=== PATIENT | female | born 1990 | race African-American/Black ===

== ENCOUNTER 2018-04-21 12:28 | Outpatient (REF) | payer OTHER, SELFPAY | END 2018-04-21 12:48 | LOC: LBN 12:28 | PROVIDERS: PCP Obstetrics & Gynecology Gynecology; Visit Provider Obstetrics & Gynecology Gynecology | DX: O42.919 Preterm premature rupture of membranes, unspecified as to length of time between rupture and onset of labor, unspecified trimester (principal) | CPT/HCPCS: 87081 ==

== ENCOUNTER 2018-05-05 23:47 | Inpatient (IN) | payer OTHER, SELFPAY ==
[2018-05-06] VITALS (8 sets, daily range): BP systolic 116–126; BP diastolic 59–98; PULSE 91–123; RESP 12–28; TEMP 36.3–36.5; O2SAT 98–100
[2018-05-06 00:23] LABS: HGB 13.4 g/dL (12.0-15.5); Mean Corp. HGB Concentration 34.4 g/dL (32.0-36.0); Mean Corpuscular Hemoglobin 30.6 pg (27.0-33.0); Mean Platelet Volume 10.8 fL (8.0-11.0); Platelet Count 258 x1000/uL (130-400); RBC 4.38 m/cumm (4.00-5.20); RBC Distribution Width 13.2 % (11.7-14.6); White Blood Cell Count 12.81 k/cumm (4.4-10.8)
[2018-05-06] MEDS: Lactated Ringers 1,000 ML 125 ML IV ×2 (00:45→07:55)
--- NOTE | 2018-05-06 06:09 | W.PM.HP.N ---
Date of service: 05/06/18 Time of Service: 01:00 Assessment and Plan (1) premature rupture of membranes: Current visit: No Status: Acute The patient was admitted for PPROM and PTL. She has been counseled extensively through the that viability for the fetus lies greater than 23 weeks and that no resuscitation would be possible at this point. We will augment labor with pitocin and monitor carefully for signs of chorioamnionitis. CBC was drawn. History of Present Illness Chief Complaint: PPROM. 19 weeks gestation Narrative: 27 year old presents with complaint of contractions and the sensation that she can feel the baby in her vagina. She is known to have SROM in the early second trimester and has been followed closely and completed MFM consultation last week. She denies any fevers or chills. No significant vaginal bleeding. She is generally healthy with no chronic medical problems. On initial evaluation a speculum examination was performed confirming presenting parts in the vagina. She is admitted for labor. Review of Systems Review of Systems All systems reviewed & are unremarkable except as noted in HPI and below Genitourinary Comments: A sterile speculum examination was performed confirming lower extremities through the external os and into the vagina. PFSH Medical History Enlarged thyroid (Chronic) premature rupture of membranes (Acute) Social History household members: significant other number of children: 0 current occupational status: employed current occupation: [employer] Recent Travel: No (Has not been out of the country recently. Is a [facility], [place], [facility].) sexually active: Yes Smoking and Tabacco status: Never alcohol intake: former substance use type: does not use Meds Home Medications Medication Instructions Recorded Confirmed Type acetaminophen 500 mg tablet 500 mg PO Q6H PRN 04/21/18 05/05/18 History vits 75-iron 28 mg-folic pkg PO each 04/21/18 05/05/18 History acid 800 mcg-omega3 440 mg oral pack Allergies Allergy/AdvReac Type Severity Reaction Status Date / Time No Known Allergies Allergy Verified 05/06/18 00:37 Results Labs : 05/06/18 00:10 Laboratory Results - last 24 hr 05/06/18 05/06/18 00:10 00:10 WBC 12.81 H RBC 4.38 Hgb 13.4 Hct 39.0 MCV 89.0 MCH 30.6 MCHC 34.4 RDW 13.2 Plt Count 258 MPV 10.8 Patient ABO/Rh AB Positive Antibody Screen Negative
--- NOTE | 2018-05-06 07:30 | PLAC_PTH ---
PATIENT: Denisha Franklin LOC: OBS U#:[id number] AGE/SX: 27/F ROOM: OBS.306 RE05/05/[address]: Ed Beach MD : 1990 BED: A DIS: 05/07/2018 SPEC #: [id number] RECD: 05/06/18 12:51 STATUS: ANGELES REQ #: [id number] JULES: 05/06/18 07:[address]: Ed Beach DEPT: Surgical Specimen RECD BY: Kia Kent ENTERED: 05/06/18 12:52 SP TYPE: PLAC OTHR DR: Keiry Del Valle Tissues: 1 - PLACENTA (NOT 3RD TRIMESTER) Procedures: GROSS AND MICRO LEVEL 4 Comments: [id number]
[2018-05-06] MEDS: fentaNYL 100 MCG/2 ML VIAL IVP (08:34)
[2018-05-06 08:46] LABS: HCT 30.5 % (36.0-46.0); HGB 10.5 g/dL (12.0-15.5); Mean Corp. HGB Concentration 34.4 g/dL (32.0-36.0); Mean Corpuscular Hemoglobin 31.2 pg (27.0-33.0); Mean Corpuscular Volume 90.5 fL (80-95); Mean Platelet Volume 10.8 fL (8.0-11.0); Platelet Count 198 x1000/uL (130-400); RBC 3.37 m/cumm (4.00-5.20); White Blood Cell Count 23.58 k/cumm (4.4-10.8)
[2018-05-06 09:02] LABS: INR 0.9 (0.9-1.1); PTT Activated 22.7 sec (21.0-31.4); Prothrombin Time 9.4 sec (9.3-11.0)
--- NOTE | 2018-05-06 09:51 | W.PM.PROGNOT ---
Date of Service Date of service: 05/06/18 Time of Service: 06:30 Subjective Interval history since last seen: At approximately 4am I was called to evaluate the patient for increasing abdominal pain. On my arrival she did deliver the fetus stillborn. This was a male fetus with no obvious anomalies. Bleeding was minimal at that time. Greater than two hours had pass and the third stage did not complete. I did attempt an extraction of the placenta at the bedside but this could not be accomplished. She did develop moderate bleeding at this point and the decision was made to proceed with suction D&C. Risks of surgery were reviewed with the patient. All questions were answered and consent was obtained. See operative note for details. Objective Objective Clinical Data: Abnormal lab results 05/06/18 05/06/18 Range/Units 00:10 08:38 WBC 12.81 H 23.58 H D (4.4-10.8) k/cumm RBC 3.37 L (4.00-5.20) m/cumm Hgb 10.5 L D (12.0-15.5) g/dL Hct 30.5 L D (36.0-46.0) % Intake & Output 05/05/18 05/05/18 05/06/18 11:59 23:59 11:59 Intake Total 3000 / 3000 Output Total 800 / 800 Balance 2200 / 2200 Weight 159 lb Intake: IV 3000 / 3000 Output: Estimated Blood Loss 800 / 800 Laboratory Results WBC 23.58 k/cumm (4.4-10.8) H D 05/06/18 08:38 RBC 3.37 m/cumm (4.00-5.20) L 05/06/18 08:38 Hgb 10.5 g/dL (12.0-15.5) L D 05/06/18 08:38 Hct 30.5 % (36.0-46.0) L D 05/06/18 08:38 MCV 90.5 fL (80-95) 05/06/18 08:38 MCH 31.2 pg (27.0-33.0) 05/06/18 08:38 MCHC 34.4 g/dL (32.0-36.0) 05/06/18 08:38 RDW 13.0 % (11.7-14.6) 02/28/19 08:38 Plt Count 198 x1000/uL (130-400) 05/06/18 08:38 MPV 10.8 fL (8.0-11.0) 05/06/18 08:38 PT 9.4 sec (9.3-11.0) 05/06/18 08:38 INR 0.9 (0.9-1.1) 05/06/18 08:38 APTT 22.7 sec (21.0-31.4) 05/06/18 08:38 Patient ABO/Rh AB Positive 05/06/18 00:10 Antibody Screen Negative 05/06/18 00:10
--- NOTE | 2018-05-06 09:58 | W.PM.OP ---
Date of service: 05/06/18 Time of Service: 09:58 Operative Note DATE OF PROCEDURE: 05/06/18 PRE-OP DIAGNOSIS: Retained placenta. PPROM. POST-OP DIAGNOSIS: same PROCEDURE: Suction D&C SURGEON: Ed Beach ANESTHESIA: ANA ROSA ESTIMATED BLOOD LOSS: 800 PATHOLOGY: other (Placenta) COMPLICATIONS: Other ( hemorrhage due to uterine atony) Patient was transported to: PACU Patient's condition: stable Findings: Uterine atony. Retained placenta Procedure Description: The patient was taken to the operating room and after adequate general anesthesia the patient was placed in lithotomy position. The patient was prepped and draped in the usual sterile manner. A weighted speculum was placed in the vagina with good visualization of the cervix. The cervix was grasped with a ring forcep and explored also with a ring forcep. The placenta was removed in fragments. A suction curettage was performed with a 14f curved suction curette yielding copious additional tissue. A sharp curettage was performed and additional tissue was retrieved. A second pass with the suction curette ensured complete evacuation of uterine contents. The uterus was significantly atonic at this point and bleeding was quite brisk. IV pitocin had been running prior the procedure and two dose of hemeabate was administered. An attempt at Bakri balloon was made but during this attempt uterine tone was regained and the Bakri could not be placed. Nonetheless bleeding had essentially stopped negating the need for the Bakri ballon. The procedure was concluded at this point. Instruments were correct at the conclusion of the procedure and the patient was transferred to PACU in stable condition.
[2018-05-06 11:04] LABS: Fibrinogen (Stat) (Littleton) 439 mg/dL (208-434)
[2018-05-06 12:28] LABS: HGB 10.3 g/dL (12.0-15.5); Mean Corp. HGB Concentration 34.3 g/dL (32.0-36.0); Mean Corpuscular Hemoglobin 31.3 pg (27.0-33.0); Mean Corpuscular Volume 91.2 fL (80-95); Mean Platelet Volume 10.9 fL (8.0-11.0); Platelet Count 209 x1000/uL (130-400); RBC 3.29 m/cumm (4.00-5.20); White Blood Cell Count 23.63 k/cumm (4.4-10.8)
[2018-05-06] MEDS: CLINDAMYCIN 900 MG/50 ML BAG 50 MG IVPB (16:24)
[2018-05-07] MEDS: CLINDAMYCIN 900 MG/50 ML BAG 50 MG IVPB ×2 (00:14→08:53)
[2018-05-07] MEDS: Normal Saline 100 ML (00:40)
[2018-05-07] MEDS: Lactated Ringers 1,000 ML 125 ML IV (04:42)
[2018-05-07 07:55] LABS: HCT 25.2 % (36.0-46.0); HGB 8.5 g/dL (12.0-15.5); Mean Corp. HGB Concentration 33.7 g/dL (32.0-36.0); Mean Corpuscular Hemoglobin 30.9 pg (27.0-33.0); Mean Corpuscular Volume 91.6 fL (80-95); Mean Platelet Volume 10.8 fL (8.0-11.0); Platelet Count 194 x1000/uL (130-400); RBC 2.75 m/cumm (4.00-5.20); RBC Distribution Width 13.2 % (11.7-14.6); White Blood Cell Count 13.29 k/cumm (4.4-10.8)
--- NOTE | 2018-05-07 08:10 | W.PM.PROGNOT ---
Date of Service Date of service: 05/07/18 Time of Service: 08:10 Assessment and Plan (1) Spontaneous in second trimester: Start date: 05/05/18 Current visit: Yes Status: Acute (2) History of D&C: Start date: 05/05/18 Current visit: Yes Status: Acute Subjective Patient reports: tolerating liquids well, voiding w/o difficulty and bowel movement (yesterday) Interval history since last seen: Focal tenderness LLQ. adnexal region. Otherwise comfortable. Exam Narrative Exam Narrative: Postop day #1 after a D&C for retained placenta after a spontaneous of a nonviable fetus at approximately 18 weeks. Her postop course has been uncomplicated she has been tolerating a regular diet passing gas had a BM yesterday she feels that she can go home today. Const General: comfortable Nutritional Appearance: average body habitus Orientation: alert, awake and oriented x3 Resp Effort & Inspection: normal respiratory effort Auscultation: clear to auscultation bilaterally Cardio Palpation: normal PMI Rate: regular rate Rhythm: regular rhythm Heart Sounds: S1 normal and S2 normal GI Inspection: normal to inspection Palpation: soft and tender (Left lower quadrant and adnexal region) Percussion: normal to percussion Auscultation: normal bowel sounds General: deferred Back/Spine/Pelvis Back: no CVA tenderness Skin General skin exam: no rashes or lesions noted Objective Objective Clinical Data: Abnormal lab results 05/06/18 05/06/18 05/06/18 Range/Units 08:38 08:38 12:15 WBC 23.58 H D 23.63 H (4.4-10.8) k/cumm RBC 3.37 L 3.29 L (4.00-5.20) m/cumm Hgb 10.5 L D 10.3 L (12.0-15.5) g/dL Hct 30.5 L D 30.0 L (36.0-46.0) % Fibrinogen 439 H (208-434) mg/dL 05/07/18 Range/Units 07:30 WBC 13.29 H D (4.4-10.8) k/cumm RBC 2.75 L (4.00-5.20) m/cumm Hgb 8.5 L (12.0-15.5) g/dL Hct 25.2 L (36.0-46.0) % Fibrinogen (208-434) mg/dL Vital Signs Temperature 97.7 F 05/06/18 09:20 Pulse 91 H 05/06/18 09:20 Respiratory Rate 28 H 05/06/18 09:20 Blood Pressure 120/78 05/06/18 09:20 Pulse Oximetry 100 05/06/18 09:20 Respiratory End-tidal CO2 27 05/06/18 09:20 Oxygen Delivery Method Room Air 05/06/18 09:20 Oxygen Flow Rate 2 05/06/18 09:05 Intake & Output 05/06/18 05/06/18 05/07/18 11:59 23:59 11:59 Intake Total 3000 / 3151.5 151.5 / 3151.5 140 / 140 Output Total 1500 / 1500 Balance 1500 / 1651.5 151.5 / 1651.5 140 / 140 Weight 159 lb Intake: IV 3000 / 3151.5 151.5 / 3151.5 140 / 140 Output: Urine 700 / 700 Estimated Blood Loss 800 / 800 Other: Urine Color Yellow Urine Appearance Clear Comment STARIGHT CATHED IN PACU Emesis Description None Laboratory Results WBC 13.29 k/cumm (4.4-10.8) H D 05/07/18 07:30 RBC 2.75 m/cumm (4.00-5.20) L 05/07/18 07:30 Hgb 8.5 g/dL (12.0-15.5) L 05/07/18 07:30 Hct 25.2 % (36.0-46.0) L 05/07/18 07:30 MCV 91.6 fL (80-95) 05/07/18 07:30 MCH 30.9 pg (27.0-33.0) 05/07/18 07:30 MCHC 33.7 g/dL (32.0-36.0) 05/07/18 07:30 RDW 13.2 % (11.7-14.6) 05/07/18 07:30 Plt Count 194 x1000/uL (130-400) 05/07/18 07:30 MPV 10.8 fL (8.0-11.0) 05/07/18 07:30 PT 9.4 sec (9.3-11.0) 05/06/18 08:38 INR 0.9 (0.9-1.1) 05/06/18 08:38 APTT 22.7 sec (21.0-31.4) 05/06/18 08:38 Fibrinogen 439 mg/dL (208-434) H 05/06/18 08:38 Patient ABO/Rh AB Positive 05/06/18 00:10 Antibody Screen Negative 05/06/18 00:10
--- NOTE | 2018-05-07 09:09 | W.PM.DS.N ---
Date of service: 05/07/18 Time of Service: 09:09 DS: Diagnosis Discharge Diagnosis (1) Spontaneous in second trimester: Status: Acute (2) History of D&C: Status: Acute Discharge Plan Disposition Patient Disposition: HOME Condition: Fair Discharge Details Reason For Visit: 20 WEEKS LABOR Admit Date/Time: 05/05/18 23:47 Admit Provider: Ed Beach Attending Provider: Ed Beach Primary Care Provider: Keiry Del Valle [facility] Hospital Course: Patient is a 27-year-old female with a history of premature rupture membranes at 17+ weeks EGA on 04/19/2018 she went on to continue the until 05/05/2018 when she experienced contractions and presented to the hospital with parts in the vagina. She underwent a oxytocin augmentation of labor and and delivered a nonviable fetus with out issue. The placenta did not deliver spontaneously and she required a D&C performed by Dr. Ed Beahc in the OR on the morning of 05/06/2018. Estimated blood loss 800 cc. Postop course was uncomplicated she remained afebrile And was discharged home after 24 hours of IV in clindamycin and gentamicin. Home Meds and New Rx's Prescriptions: No Action acetaminophen [Tylenol Extra Strength] 500 mg tablet 500 mg PO Q6H PRNRF: 0 Daily 28-800-440 mg-mcg-mg combo pack PO RF: 0 Discharge Instructions Additional Instructions: You will continue to have bleeding for approximately 2 weeks. You may use ibuprofen 600 mg every 6 hours for pelvic discomfort. Contact [facility] at [phone] if you are develop chills, shakes, uterine tenderness not controlled with ibuprofen or a temperature of over 100.5 ?F. Make a follow-up with Dr. Beach 2 weeks. Nothing in the vagina: No intercourse or tampons until your postop visit. 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 I recommend waiting approximately a week before return to work. Continue to take a multivitamin with iron along with your antibiotics. Discharge medications: Doxycycline 100 mg twice daily for 7 days and Metronidazole 500 mg twice a day for 7 days. I will send those prescriptions to your pharmacy. Activity:: Activity as Tolerated Equipment/Supplies:: No Equipment Needed Diet:: As Tolerated Discharge Orders Discharge Orders: Discharge Order (Routine); Ordered 05/07/18 Ordered By: Keiry Del Valle Exam Const General: comfortable and no acute distress Resp Effort & Inspection: normal respiratory effort Auscultation: clear to auscultation bilaterally Cardio Palpation: normal PMI Rate: regular rate Heart Sounds: S1 normal and S2 normal GI Inspection: normal to inspection Palpation: tender (Continues with left lower quadrant pain mild.) Abdomen image: 1. General: deferred Skin General skin exam: no rashes or lesions noted Psych Appearance: grossly normal Mental Status: mental status grossly normal DS: Data Vitals/I&O Vitals and I&O: Vital Signs Temperature 97.7 F 05/06/18 09:20 Pulse 91 H 05/06/18 09:20 Respiratory Rate 28 H 05/06/18 09:20 Blood Pressure 120/78 05/06/18 09:20 Pulse Oximetry 100 05/06/18 09:20 Respiratory End-tidal CO2 27 05/06/18 09:20 Oxygen Delivery Method Room Air 05/06/18 09:20 Oxygen Flow Rate 2 05/06/18 09:05 Intake & Output 05/06/18 05/06/18 05/07/18 11:59 23:59 11:59 Intake Total 3000 / 3151.5 151.5 / 3151.5 140 / 140 Output Total 1500 / 1500 Balance 1500 / 1651.5 151.5 / 1651.5 140 / 140 Weight 159 lb Intake: IV 3000 / 3151.5 151.5 / 3151.5 140 / 140 Output: Urine 700 / 700 Estimated Blood Loss 800 / 800 Other: Urine Color Yellow Urine Appearance Clear Comment STARIGHT CATHED IN PACU Emesis Description None Labs on day of discharge: Labs from last 24 hours 05/07/18 05/06/18 05/06/18 07:30 12:15 09:55 WBC 13.29 H D 23.63 H Cancelled RBC 2.75 L 3.29 L Cancelled Hgb 8.5 L 10.3 L Cancelled Hct 25.2 L 30.0 L Cancelled MCV 91.6 91.2 Cancelled MCH 30.9 31.3 Cancelled MCHC 33.7 34.3 Cancelled RDW 13.2 13.0 Cancelled Plt Count 194 209 Cancelled MPV 10.8 10.9 Cancelled Fibrinogen 05/06/18 08:38 WBC RBC Hgb Hct MCV MCH MCHC RDW Plt Count MPV Fibrinogen 439 H PFSH Medical History Spontaneous in second trimester (Acute) Enlarged thyroid (Chronic) premature rupture of membranes (Resolved) Surgical History History of D&C (Acute) Social History household members: significant other number of children: 0 current occupational status: employed current occupation: [employer] Recent Travel: No (Has not been out of the country recently. Is a [facility], [place], [facility] [facility] [employer] sexually active: Yes Smoking and Tabacco status: Never alcohol intake: former substance use type: does not use
== END 2018-05-07 10:30 | disposition home or self-care (01) | DRG 807 ==
PROVIDERS: Nurse Anesthetist, Certified Registered; Admitting Provider Obstetrics & Gynecology; PCP Obstetrics & Gynecology Gynecology; Visit Provider Obstetrics & Gynecology
PROC: (CPT 59812; principal; 2018-05-06 07:30)
DX: O03.1 Delayed or excessive hemorrhage following incomplete spontaneous abortion (principal); Z37.1 Single stillbirth; Z3A.19 19 weeks gestation of pregnancy
CPT/HCPCS: 59812; 36415; 85027; 85384; 86850; 86900; 86901; 88305; 99223; 99231; 99233; 85610; 85730; J1100; J1580; J2250; J2405; J3010; J3490

== ENCOUNTER 2018-10-26 10:41 | Outpatient (CLI) | payer OTHER, SELFPAY ==
--- NOTE | 2018-10-26 10:45 | DI.US_ITS ---
SYMPTOM/DIAGNOSIS: EVALUATE PELVIC MASS, FIBROID VS OVARIAN MASS OB ULTRASOUND: 10/26 OB ultrasound was performed according to first trimester protocol. There is an apparent fibroid measuring roughly 5.3 x 4.2 x 7.5 cm in diameter posteriorly. No ovarian mass seen. There is a single viable intrauterine gestation with crown/rump length measurements consistent with gestational age of 9 weeks 2 days and EDC 05/29/19. cardiac activity observed at a rate of 175 BPM. Ovaries measure 32 x 13 x 14 mm for the right ovary and 27 x 19 x 19 mm for the left ovary. CONCLUSION: Viable quan intrauterine gestation, 9 weeks 2 days. Uterine fibroid noted as described above. Many abnormalities cannot be diagnosed. A normal exam does not exclude a congenital anomaly. HISTORY: pelvic mass on dating U/S [facility] - uterine vs ovarian origin? Date of exam: 10/26/18 LMP: 08/22/18 EDC by LMP: Previous study: 9 +2 wks Range: 8 +2 to 10 +2 EDC by prior us: Findings: Prior surgery/: none BIOMETRY: PELVIC MEASUREMENTS: CRL: 25 mm 9 +2 wks Uterus: 12.1 X 9.2 X 9.6 cm Yolk sac: mm wks Gest sac: mm wks Rt Ovary: 3.2 X 1.3 X 1.4 cm BPD: mm wks HC: mm wks Lt Ovary: 2.7 X 1.9 X 1.9 cm AC: mm wks FL: mm wks Comments: Composite Age (US): 9 +2 wks EDC by US: 05/29/19 Heart Rate: 175 BPM Amniotic Fluid: Normal Movement noted: XX Yes Comments:
--- NOTE | 2018-10-26 10:45 | DI.US_ITS ---
SYMPTOM/DIAGNOSIS: ENLARGED THYROID E04.9 THYROID ULTRASOUND 10/26 Thyroid ultrasound was performed according to the usual protocol. The patient reportedly has a palpable abnormality. This corresponds to a lymph node which is unremarkable in appearance. Right thyroid lobe measures 61 x 17 x 30 mm in diameter Left thyroid lobe measures 60 x 18 x 30 mm in diameter. No focal thyroid mass identified but the parenchyma is heterogeneous throughout with a vaguely nodular appearance. CONCLUSION: Findings consistent with goiter. No intrathyroidal mass. Lymph node noted corresponding to the palpable abnormality in the cervical region on the right.
[2018-10-26 12:06] LABS: Abs Immature Grans 0.01 k/cumm (0.0-0.09); Absolute Basophil Count 0.02 k/cumm (0.0-0.2); Absolute Eosinophil Count 0.09 k/cumm (0.0-0.7); Absolute Lymphocyte Count 1.43 k/cumm (1.2-3.4); Absolute Monocyte Count 0.59 k/cumm (0.11-0.7); Absolute Neutrophil Count 6.65 k/cumm (1.2-6.7); Basophils % 0.2; HCT 38.2 % (36.0-46.0); HGB 13.2 g/dL (12.0-15.5); Immature Grans % 0.1; Lymphocytes % 16.3; Mean Corp. HGB Concentration 34.6 g/dL (32.0-36.0); Mean Corpuscular Hemoglobin 30.4 pg (27.0-33.0); Mean Platelet Volume 10.7 fL (8.0-11.0); Monocytes % 6.7; Neutrophils % 75.7; Platelet Count 311 x1000/uL (130-400); RBC 4.34 m/cumm (4.00-5.20); RBC Distribution Width 12.1 % (11.7-14.6); White Blood Cell Count 8.79 k/cumm (4.4-10.8)
[2018-10-26 13:14] LABS: FREE T4 1.09 ng/dL (0.76-1.46); TSH 1.62 uIU/mL (0.36-3.74)
[2018-10-26 22:14] LABS: T3, Total 166 ng/dl (97-169)
[2018-10-27 10:05] LABS: Hepatitis B Surface Ag Negative (NEGAT)
[2018-10-27 10:56] LABS: HIV-1/2 Ag & Ab Screen Negative (NEGAT)
[2018-10-27 10:58] LABS: Rubella IgG Ab (UVM) Positive; Varicella IgG Antibody Positive
[2018-10-27 11:00] LABS: Hepatitis C Ab w Rflx HCV PCR Negative (NEGAT)
[2018-10-27 12:50] LABS: Syphilis Serology (RPR) Negative (Negative)
== END 2018-10-26 11:01 ==
PROVIDERS: PCP Obstetrics & Gynecology Gynecology; Visit Provider Obstetrics & Gynecology
DX: E04.8 Other specified nontoxic goiter (principal); Z34.91 Encounter for supervision of normal pregnancy, unspecified, first trimester; D25.9 Leiomyoma of uterus, unspecified; Z11.4 Encounter for screening for human immunodeficiency virus [HIV]; Z11.59 Encounter for screening for other viral diseases; Z01.84 Encounter for antibody response examination; R59.0 Localized enlarged lymph nodes
CPT/HCPCS: 36415; 80055; 86787; 86803; 86850; 86900; 86901; 87340; 87389; 76536; 76801; 84439; 84443; 84480; 86592; 86762

== ENCOUNTER 2018-11-10 10:10 | Outpatient (CLI) | payer OTHER, SELFPAY ==
[2018-11-10 10:51] LABS: Abs Immature Grans 0.01 k/cumm (0.0-0.09); Absolute Basophil Count 0.02 k/cumm (0.0-0.2); Absolute Eosinophil Count 0.06 k/cumm (0.0-0.7); Absolute Lymphocyte Count 1.28 k/cumm (1.2-3.4); Absolute Monocyte Count 0.53 k/cumm (0.11-0.7); Absolute Neutrophil Count 6.91 k/cumm (1.2-6.7); Basophils % 0.2; Eosinophils % 0.7; HCT 37.6 % (36.0-46.0); HGB 13.3 g/dL (12.0-15.5); Immature Grans % 0.1; Lymphocytes % 14.5; Mean Corp. HGB Concentration 35.4 g/dL (32.0-36.0); Mean Corpuscular Hemoglobin 30.8 pg (27.0-33.0); Mean Platelet Volume 10.5 fL (8.0-11.0); Neutrophils % 78.5; Platelet Count 298 x1000/uL (130-400); RBC 4.32 m/cumm (4.00-5.20); RBC Distribution Width 12.1 % (11.7-14.6); White Blood Cell Count 8.81 k/cumm (4.4-10.8)
[2018-11-11 10:22] LABS: Hepatitis B Surface Ag Negative (NEGAT)
[2018-11-11 10:24] LABS: HIV-1/2 Ag & Ab Screen Negative (NEGAT)
[2018-11-11 10:28] LABS: Hepatitis C Ab w Rflx HCV PCR Negative (NEGAT)
[2018-11-11 10:33] LABS: Syphilis Serology (RPR) Negative (Negative)
[2018-11-11 10:36] LABS: Rubella IgG Ab (UVM) Positive; Varicella IgG Antibody Positive
[2018-11-12 16:20] LABS: Syphilis Total Ab w/Reflex Nonreactive (Nonreactive)
== END 2018-11-10 10:30 ==
PROVIDERS: PCP Obstetrics & Gynecology Gynecology; Visit Provider Advanced Practice Midwife
DX: Z34.91 Encounter for supervision of normal pregnancy, unspecified, first trimester (principal); Z11.4 Encounter for screening for human immunodeficiency virus [HIV]; Z11.59 Encounter for screening for other viral diseases; Z01.84 Encounter for antibody response examination
CPT/HCPCS: 36415; 80055; 86787; 86803; 86850; 86900; 86901; 87340; 87389; 87491; 87591; 86592; 86762; 86780

== ENCOUNTER 2018-11-10 17:31 | Outpatient (REF) | payer OTHER, SELFPAY ==
[2018-11-10 14:31] LABS: *AMPHETAMINES SCREEN URINE Negative (Negative); *BARBITURATES SCREEN URINE Negative (Negative); *BENZODIAZEPINES SCREEN URINE Negative (Negative); Cannabinoids THC Negative (Negative); Cocaine Screen,Urine Negative (Negative); METHADONE URINE SCREEN Negative (Negative); OPIATES URINE SCREEN Negative (Negative)
[2018-11-10 14:35] LABS: Tricyclic Antidepressants Negative (Negative)
[2018-11-11 13:08] LABS: Chlamydia Result Negative; GC Result Negative; Specimen Description CERVIX
[2018-11-11 13:08] LABS: Chlamydia Result Negative; GC Result Negative; Specimen Description Urine
[2018-11-17 11:22] LABS: Buprenorphine Negative; Norbuprenorphine Negative
== END 2018-11-10 17:51 ==
LOC: LBN 17:31
PROVIDERS: PCP Obstetrics & Gynecology Gynecology; Visit Provider Advanced Practice Midwife
DX: Z34.90 Encounter for supervision of normal pregnancy, unspecified, unspecified trimester (principal)
CPT/HCPCS: 80307; 87491; 87591; 87086; 87480; 87510; 87660

== ENCOUNTER 2018-11-24 06:02 | Day surgery (SDC) | payer OTHER, SELFPAY ==
[2018-11-24] VITALS (8 sets, daily range): BP systolic 106–120; BP diastolic 48–80; PULSE 75–86; RESP 16–25; TEMP 36.6–37.2; O2SAT 99–100
[2018-11-24 07:03] LABS: HCT 37.3 % (36.0-46.0); HGB 13.1 g/dL (12.0-15.5); Mean Corp. HGB Concentration 35.1 g/dL (32.0-36.0); Mean Corpuscular Hemoglobin 30.8 pg (27.0-33.0); Mean Corpuscular Volume 87.8 fL (80-95); Mean Platelet Volume 10.6 fL (8.0-11.0); Platelet Count 291 x1000/uL (130-400); RBC 4.25 m/cumm (4.00-5.20); RBC Distribution Width 12.3 % (11.7-14.6); White Blood Cell Count 8.09 k/cumm (4.4-10.8)
[2018-11-24] MEDS: Lactated Ringers 1,000 ML 125 ML IV (07:03)
[2018-11-24] MEDS: Silver Nitrate Stick 1 EACH (08:00)
[2018-11-24] MEDS: Acetaminophen 500 MG TAB 1000 MG PO (08:51)
[2018-11-24] MEDS: Indomethacin 25 MG CAP 50 MG PO (09:14)
--- NOTE | 2018-11-24 19:32 | W.PM.OP ---
Date of service: 11/24/18 Time of Service: 19:32 Operative Note Operative Note DATE OF PROCEDURE: 11/24/18 PRE-OP DIAGNOSIS: Cervical insufficiency POST-OP DIAGNOSIS: same PROCEDURE: [place] SURGEON: Ed Beach ANESTHESIA: spinal ESTIMATED BLOOD LOSS: 20 PATHOLOGY: none sent COMPLICATIONS: None Patient was transported to: PACU Patient's condition: stable Procedure Description: The patient was taken to the operating room and after adequate spinal anesthesia was obtained the patient was placed in lithotomy position. The patient was prepped and draped in usual sterile manner. A weighted speculum was placed in the vagina with good visualization of the cervix. The cervix was grasped with an Allis forcep. The cervical vaginal junction was identified. A pursestring suture starting at the 12 o'clock position with 5 mm Mersilene tape and a free needle was passed circumferentially around the cervix. This was tied with 7 knots at the 12 o'clock position. Excellent hemostasis was noted. The procedure was tolerated well. The cervix was closed at the conclusion of the procedure. the patient was transferred to PACU stable condition. Sponge, lap and needle counts were correct at the conclusion of the procedure.
== END 2018-11-24 10:07 | disposition home or self-care (01) ==
PROVIDERS: PCP Nurse Practitioner Adult Health; Visit Provider Obstetrics & Gynecology
PROC: 0UVC7ZZ Restriction of Cervix, Via Natural or Artificial Opening (ICD-10-PCS; CPT 57700; principal; 2018-11-24 07:30)
DX: O34.31 Maternal care for cervical incompetence, first trimester (principal); Z3A.13 13 weeks gestation of pregnancy
CPT/HCPCS: 59320; 85027; 86850; 86900; 86901; 86920; P9016

== ENCOUNTER 2018-12-17 14:47 | Outpatient (CLI) | payer OTHER, SELFPAY ==
[2018-12-17 16:51] LABS: FREE T4 0.98 ng/dL (0.76-1.46)
== END 2018-12-17 15:07 ==
PROVIDERS: PCP Nurse Practitioner Adult Health
DX: R76.8 Other specified abnormal immunological findings in serum (principal)
CPT/HCPCS: 36415; 84439

== ENCOUNTER 2019-01-07 10:21 | Outpatient (CLI) | payer OTHER, SELFPAY ==
--- NOTE | 2019-01-07 12:46 | DI.US_ITS ---
EXAM: US OB CERVICAL LENGTH CLINICAL HISTORY: S/P cerclage, CERVICAL INSUFFICIENCY DURING TECHNIQUE: Ultrasound performed using standard protocol. COMPARISON: US OB 1st trimester from 10/26/2018 FINDINGS: The fetus was in variable position during the exam. The placenta is anterior. The cervical length i s 4.4 cm to 4.6 cm. The cervical os is closed.
== END 2019-01-07 10:41 ==
PROVIDERS: PCP Nurse Practitioner Adult Health; Visit Provider Obstetrics & Gynecology
DX: O34.32 Maternal care for cervical incompetence, second trimester (principal)
CPT/HCPCS: 76815

== ENCOUNTER 2019-01-24 01:42 | Outpatient (CLI) | payer OTHER, SELFPAY ==
--- NOTE | 2019-01-24 09:53 | DI.US_ITS ---
EXAM: US OB 2-3 TRIMESTER CLINICAL HISTORY: , Z34.90, Cervical insufficiency in 2nd trimester, O34.32 TECHNIQUE: Ultrasound performed using standard protocol. COMPARISON: US OB 1st trimester from 10/26/2018 US OB CERVICAL LENGTH from 01/07/2019 FINDINGS: A posterior lower uterine segment fibroid is again noted measuring 6.6 cm in greatest dimension. The fetus was in breech position during the exam. The placenta is anterior. The biometric measurements correspond to 22 weeks 1 day which is consistent with predicted age. The amniotic fluid amount appea rs visually normal. No abnormalities are seen. The cervical length is measured at 4.5. The c ervical os appears closed. IMPRESSION: Cervical length 4.5 cm. Posterior lower uterine segment fibroid. Appropriate interval growth.
== END 2019-01-24 02:02 ==
PROVIDERS: PCP Nurse Practitioner Adult Health; Visit Provider Obstetrics & Gynecology
DX: O34.32 Maternal care for cervical incompetence, second trimester (principal); D25.9 Leiomyoma of uterus, unspecified
CPT/HCPCS: 76805

== ENCOUNTER 2019-03-03 11:31 | Outpatient (CLI) | payer OTHER, SELFPAY ==
[2019-03-03 13:00] LABS: Glucose,1 Hr (Glucola) 132 mg/dL (80-140)
[2019-03-03 13:02] LABS: Abs Immature Grans 0.03 k/cumm (0.0-0.09); Absolute Basophil Count 0.02 k/cumm (0.0-0.2); Absolute Eosinophil Count 0.13 k/cumm (0.0-0.7); Absolute Lymphocyte Count 1.23 k/cumm (1.2-3.4); Absolute Neutrophil Count 5.93 k/cumm (1.2-6.7); Basophils % 0.3; Eosinophils % 1.6; HCT 36.7 % (36.0-46.0); HGB 12.5 g/dL (12.0-15.5); Immature Grans % 0.4; Lymphocytes % 15.5; Mean Corp. HGB Concentration 34.1 g/dL (32.0-36.0); Mean Corpuscular Hemoglobin 31.4 pg (27.0-33.0); Mean Corpuscular Volume 92.2 fL (80-95); Mean Platelet Volume 10.4 fL (8.0-11.0); Monocytes % 7.6; Neutrophils % 74.6; Platelet Count 249 x1000/uL (130-400); RBC 3.98 m/cumm (4.00-5.20); RBC Distribution Width 12.8 % (11.7-14.6); White Blood Cell Count 7.94 k/cumm (4.4-10.8)
[2019-03-03 13:43] LABS: TSH (W/Ref FT4) 1.28 uIU/mL (0.36-3.74)
== END 2019-03-03 11:51 ==
PROVIDERS: PCP Nurse Practitioner Adult Health; Visit Provider Obstetrics & Gynecology
DX: O99.282 Endocrine, nutritional and metabolic diseases complicating pregnancy, second trimester; E06.3 Autoimmune thyroiditis
CPT/HCPCS: 36415; 82950; 84443; 85025

== ENCOUNTER 2019-03-28 00:51 | Outpatient (CLI) | payer OTHER, SELFPAY ==
--- NOTE | 2019-03-28 10:07 | DI.US_ITS ---
EXAM: US OB LATASHA WEIGHT CLINICAL HISTORY: Size less than dates O34.32 CERVICAL INCOMPETENCE TECHNIQUE: Ultrasound performed using standard protocol. COMPARISON: US OB 2-3 TRIMESTER from 01/24/2019 FINDINGS: Ob ultrasound was performed utilizing 3rd trimester protocol. biometry is consistent with gest ational age of 33 weeks 5 days and EDC of 05/11/2019. Estimated weight is 2155 grams which is at the 95th percentile for predicted gestational age. Placenta is anterior with no placenta previa. Fetus is in cephalic presentation. Amniotic fluid index is 21 which is slightly increased above the normal range consistent with mild po lyhydramnios. Estimated cervical length is 3.2 cm. cardiac activity noted at a rate of 158 BPM IMPRESSION:
== END 2019-03-28 01:11 ==
PROVIDERS: PCP Nurse Practitioner Adult Health; Visit Provider Obstetrics & Gynecology
DX: O34.33 Maternal care for cervical incompetence, third trimester (principal); O26.843 Uterine size-date discrepancy, third trimester; O40.3XX0 Polyhydramnios, third trimester, not applicable or unspecified; Z3A.33 33 weeks gestation of pregnancy
CPT/HCPCS: 76816

== ENCOUNTER 2019-04-26 02:05 | Outpatient (CLI) | payer OTHER, SELFPAY ==
--- NOTE | 2019-04-26 10:45 | DI.US_ITS ---
EXAM: US OB LATASHA AND WEIGHT CLINICAL HISTORY: LGA. REVALUATE GROWTH O36.60X0 EXCESSIVE GROWTH TECHNIQUE: Ultrasound performed using standard protocol. COMPARISON: US OB LATASHA WEIGHT from 03/28/2019 FINDINGS: There is a single living intrauterine gestation. The fetus is in the cephalic presentation. heart rate is 155 BPM. Estimated weight is 3024 grams. This is the 86th percentile. Amniotic fluid index is 20.9 cm. Visually, the amniotic fluid appears within normal limits. The placenta is anterior. IMPRESSION: Single living intrauterine gestation. The estimated sonographic age is 36 weeks 5 days.
== END 2019-04-26 02:25 ==
PROVIDERS: PCP Nurse Practitioner Adult Health; Visit Provider Obstetrics & Gynecology
DX: O36.60X3 Maternal care for excessive fetal growth, unspecified trimester, fetus 3 (principal)
CPT/HCPCS: 76816

== ENCOUNTER 2019-05-06 11:55 | Outpatient (REF) | payer OTHER, SELFPAY | END 2019-05-06 12:15 | LOC: LBN 11:55 | PROVIDERS: PCP Nurse Practitioner Adult Health; Visit Provider Obstetrics & Gynecology | DX: Z34.93 Encounter for supervision of normal pregnancy, unspecified, third trimester (principal); Z36.85 Encounter for antenatal screening for Streptococcus B | CPT/HCPCS: 87081 ==

== ENCOUNTER 2019-05-20 00:38 | Observation (INO) | payer OTHER, SELFPAY ==
[2019-05-20] MEDS: Lactated Ringers 1,000 ML 125 ML IV (01:35)
[2019-05-20] MEDS: fentaNYL 100 MCG/2 ML VIAL 50 MCG IVP (01:35)
[2019-05-20 01:52] LABS: HCT 37.7 % (36.0-46.0); HGB 13.1 g/dL (12.0-15.5); Mean Corp. HGB Concentration 34.7 g/dL (32.0-36.0); Mean Corpuscular Hemoglobin 31.4 pg (27.0-33.0); Mean Corpuscular Volume 90.4 fL (80-95); Mean Platelet Volume 11.3 fL (8.0-11.0); Platelet Count 178 x1000/uL (130-400); RBC 4.17 m/cumm (4.00-5.20); RBC Distribution Width 12.3 % (11.7-14.6); White Blood Cell Count 13.18 k/cumm (4.4-10.8)
[2019-05-20 02:04] LABS: ALT 15 U/L (14-59); AST 18 U/L (15-37); Alkaline Phosphatase 153 U/L (46-116); Anion Gap 13.8 mmol/L (3-11); BUN 11 mg/dL (7-18); Bilirubin, Total 0.5 mg/dL (0.2-1.0); CO2 21.2 mmol/L (21.0-32.0); CREATININE 0.88 mg/dL (0.55-1.02); Calcium 9.1 mg/dL (8.5-10.1); Chloride 104 mmol/L (98-107); Glucose 89 mg/dL (74-106); Potassium 3.6 mmol/L (3.5-5.1); Sodium 139 mmol/L (136-145); Total Protein 7.4 g/dL (6.4-8.2)
[2019-05-20 02:59] LABS: Bilirubin Negative (Negative); Blood Trace-intact (Negative); Clarity Clear (Clear); Glucose Negative (Negative); Ketones 40 mg/dL (Negative); Leukocyte Esterase Negative (Negative); Nitrite Negative (Negative); Urobilinogen 0.2 EU/dL (Up TO 0.2); pH 6.5 (5-8)
[2019-05-20 03:12] LABS: Bacteria Rare HPF (Negative); C & S Indicated? No; Casts Negative LPF (Negative); Crystals Negative HPF (Negative); Epithelial Cells Moderate HPF (Negative); Mucus Negative (Negative); RBC 0-2 HPF (0-2); WBC 0-2 HPF (0-5)
--- NOTE | 2019-05-20 07:55 | W.PM.DS.N ---
Date of service: 05/20/19 Time of Service: 07:55 DS: Diagnosis Discharge Diagnosis (1) Uterine fibroid in antepartum period: Status: Acute (2) Abdominal pain affecting : Status: Acute Discharge Plan Disposition Patient Disposition: HOME Condition: Fair Discharge Details Reason For Visit: IUP AT 38W EGA. L FLANK PAIN Admit Date/Time: 05/20/19 00:38 Admit Provider: Keiry Del Valle Attending Provider: Keiry Del Valle Primary Care Provider: Tatiana Rao [facility] Course Hospital Course: Patient was admitted for unremitting left-sided flank pain at 38w 5d EGA. External tocometer showed contractions every 3 minutes and cervix dilated to 3 cm with 90% effacement -1 station. It appeared that she was experiencing early labor and she was admitted and given 50 mcg of fentanyl IV. That 1 dose of fentanyl completely relieved her pain. She slept for several hours and cervical exam was essentially unchanged approximately 5 hours after admission. surveillance was reassuring. The patient requested discharge to home. [facility]. A prescription for Percocet was given to the patient 5/325 1 tablet every 4 hours as needed for pain #5 dispensed Home Meds and New Rx's Prescriptions: No Action acetaminophen [Tylenol Extra Strength] 500 mg tablet 500 mg PO Q6H PRNRF: 0 PrePlus 27 mg iron- 1 mg tablet 1 tab PO DAILY Qty: 90 RF: 8 [place] (PF) 275 mg/1.1 mL auto-injector 275 mg SC ONCE Qty: 1.1 RF: 0 oxycodone-acetaminophen 5-325 mg tablet 1 tab PO Q4H MDD 6 PRN (Reason: pain) Qty: 5 RF: 0 fluconazole [Diflucan] 150 mg tablet 150 mg PO ONCE Qty: 1 RF: 0 Discharge Instructions Additional Instructions: If your pain recurs take dose of Percocet. If that is not effective at relieving her discomfort call the hospital and ask for the on-call provider. Percocet has Tylenol in it so take no more than 3 g of Tylenol over the course of 24 hours. If you have vaginal bleeding, contractions or rupture amniotic sac notify the on-call provider and come to the hospital. You will have a follow-up appointment for you prior to discharge. Activity:: Activity as Tolerated Equipment/Supplies:: No Equipment Needed Diet:: As Tolerated Discharge Orders Discharge Orders: Discharge Order (Routine); Ordered 05/20/19 Ordered By: Keiry Del Valle DS: Summary Status at Discharge Functional status at discharge: independent ambulation Overall status at discharge: patient is back to baseline Mental Status: mental status grossly normal (Pain resolved.) Speech and Movement: speech and movement normal Mood: congruent mood Affect: normal affect Exam Const General: comfortable and no acute distress Resp Effort & Inspection: normal respiratory effort External Female Exam: normal external appearance Manual OB Exam: dilated 3, effaced fully (90%) and station -1 Back/Spine/Pelvis Back: no CVA tenderness Pelvis: no pain with anterior-posterior compression Extrem General: normal to inspection, full ROM and capillary refill normal Psych Appearance: grossly normal Mental Status: mental status grossly normal (Pain resolved.) Speech and Movement: speech and movement normal Mood: congruent mood Affect: normal affect DS: Data Vitals/I&O Vitals and I&O: Vital Signs Pain Level 0 05/20/19 02:35 Data Completed and Pending Labs on day of discharge: Labs from last 24 hours 05/20/19 05/20/19 05/20/19 02:35 01:35 01:35 WBC 13.18 H RBC 4.17 Hgb 13.1 Hct 37.7 MCV 90.4 MCH 31.4 MCHC 34.7 RDW 12.3 Plt Count 178 MPV 11.3 H Sodium Potassium Chloride Carbon Dioxide Anion Gap BUN Creatinine Estimated GFR/1.73 m2 Glucose Calcium Total Bilirubin AST ALT Alkaline Phosphatase Total Protein Albumin Urine Color Yellow Urine Clarity Clear Urine pH 6.5 Ur Specific [place] 1.020 Urine Protein 30 H Urine Ketones 40 H Urine Blood Trace-intact H Urine Nitrite Negative Urine Bilirubin Negative Urine Urobilinogen 0.2 Ur Leukocyte Esterase Negative Urine RBC 0-2 Urine WBC 0-2 Ur Epithelial Cells Moderate Urine Crystals Negative Urine Bacteria Rare Urine Casts Negative Urine Mucus Negative Ur Culture Indicated? No Urine Glucose Negative Patient ABO/Rh AB Positive Antibody Screen Negative 05/20/19 01:35 WBC RBC Hgb Hct MCV MCH MCHC RDW Plt Count MPV Sodium 139 Potassium 3.6 Chloride 104 Carbon Dioxide 21.2 Anion Gap 13.8 H BUN 11 Creatinine 0.88 Estimated GFR/1.73 m2 >= 60.00 Glucose 89 Calcium 9.1 Total Bilirubin 0.5 AST 18 ALT 15 Alkaline Phosphatase 153 H Total Protein 7.4 Albumin 3.0 L Urine Color Urine Clarity Urine pH Ur Specific [place] Urine Protein Urine Ketones Urine Blood Urine Nitrite Urine Bilirubin Urine Urobilinogen Ur Leukocyte Esterase Urine RBC Urine WBC Ur Epithelial Cells Urine Crystals Urine Bacteria Urine Casts Urine Mucus Ur Culture Indicated? Urine Glucose Patient ABO/Rh Antibody Screen PFSH Family History (Updated 11/10/18 @ 09:20 by Cassie Quiñones CNM) Mother Depression Social History (Updated 04/21/18 @ 16:51 by Keiry Del Valle MD) Smoking/Tobacco Use Status: Never Alcohol Intake: never Drug use: Never Substance use type: does not use Household members: significant other Number of Children: 0 current occupation: [employer] Sexually active: Yes Do you feel safe at home: Yes Do you feel safe in your relationship?: Yes History History 2 Para Hx # Term Pregnancies 0 Multiple births Hx # Pregnancies Ectopic pregnancies AB induced Hx Number of Living Children AB spontaneous Past Pregnancies Del. Date GA/Weeks # Outcome Route Wgt Sex Labor Lgth Anesthesia Location Prov Complic 04/14/18 19 No Unsuccessful vaginal Delivery Date: 04/14/18 SAB at 19w1d retained placenta to OR By Cassie Butts
== END 2019-05-20 08:30 | disposition home or self-care (01) ==
PROVIDERS: Admitting Provider Obstetrics & Gynecology Gynecology; PCP Nurse Practitioner Adult Health; Visit Provider Obstetrics & Gynecology Gynecology
DX: O34.13 Maternal care for benign tumor of corpus uteri, third trimester (principal); D25.9 Leiomyoma of uterus, unspecified; O26.893 Other specified pregnancy related conditions, third trimester; R10.9 Unspecified abdominal pain; Z3A.38 38 weeks gestation of pregnancy
CPT/HCPCS: 80053; 85027; 86850; 86900; 86901; 96360; 96361; NC; 81003; 81015; G0378; J3010

== ENCOUNTER 2019-05-22 14:26 | Inpatient (IN) | payer OTHER, SELFPAY ==
[2019-05-22 16:54] LABS: ROM Plus Positive
[2019-05-22 18:08] LABS: HCT 41.9 % (36.0-46.0); HGB 14.4 g/dL (12.0-15.5); Mean Corp. HGB Concentration 34.4 g/dL (32.0-36.0); Mean Corpuscular Hemoglobin 31.2 pg (27.0-33.0); Mean Corpuscular Volume 90.7 fL (80-95); Platelet Count 210 x1000/uL (130-400); RBC 4.62 m/cumm (4.00-5.20); RBC Distribution Width 12.5 % (11.7-14.6); White Blood Cell Count 8.75 k/cumm (4.4-10.8)
[2019-05-22 18:50] LABS: ALT 16 U/L (14-59); AST 23 U/L (15-37); Albumin 3.4 g/dL (3.4-5.0); Alkaline Phosphatase 183 U/L (46-116); Anion Gap 14.5 mmol/L (3-11); BUN 13 mg/dL (7-18); Bilirubin, Direct 0.19 mg/dL (0.00-0.20); Bilirubin, Total 0.7 mg/dL (0.2-1.0); CO2 22.5 mmol/L (21.0-32.0); CREATININE 0.94 mg/dL (0.55-1.02); Calcium 9.6 mg/dL (8.5-10.1); Chloride 103 mmol/L (98-107); Glucose 87 mg/dL (74-106); Potassium 4.1 mmol/L (3.5-5.1); Sodium 140 mmol/L (136-145); Total Protein 7.7 g/dL (6.4-8.2)
[2019-05-22] MEDS: Lactated Ringers 1,000 ML 999 ML IV (22:15)
[2019-05-22] MEDS: Lactated Ringers 250 ML 500 ML IV (22:30)
[2019-05-22] MEDS: fentaNYL 100 MCG/2 ML VIAL IVP (23:00)
[2019-05-23] MEDS: FentaNYL/ROPIvacaine 2 mcg/ml and 0.1% 200 ML CADD Cassette EP
[2019-05-23] MEDS: Lactated Ringers 1,000 ML 125 ML IV ×2 (01:00→06:10)
[2019-05-23] MEDS: Hamamelis Leaf/Glycerin 100 EACH BOX PR (12:06)
[2019-05-23] MEDS: Acetaminophen 325 MG TAB 650 MG PO ×2 (12:07→22:11)
[2019-05-23] MEDS: Docusate Sodium 100 MG CAP PO (12:07)
[2019-05-23] MEDS: Ibuprofen 600 MG TAB PO ×2 (12:07→22:14)
[2019-05-23] MEDS: Normal Saline Flush 10 ML SYR IVP (12:22)
[2019-05-24] MEDS: Acetaminophen 325 MG TAB 650 MG PO ×2 (06:22→19:20)
[2019-05-24] MEDS: Ibuprofen 600 MG TAB PO ×2 (06:23→19:20)
--- NOTE | 2019-05-24 16:44 | PDOC.ANES ---
Anesthesia Note Pt reports heaviness in right leg. Pt is SP atraumatic epidural placement at 0030 ThursdayMay 22. She delivered Thursday morning. Epidural was DCed. Pt reported that her right leg felt weak after taking a shower yesterday afternoon. Motor assessment (resisted dorsifexion and plantar flexion) demonstrates equal strength bilaterally. Today, Denisha has been up walking in the halls with no noticeable gait differences, foot drop, or unsteadiness. She states everybody keeps asking me about this leg thing but it doesnt bother me at all. I hardly notice it. Ms. Franklin will be discharged tomorrow per the current plan. The patient will be given instructions on what to look for and when to call anesthesia for questions or come to the ED.
[2019-05-24] MEDS: Docusate Sodium 100 MG CAP PO (20:12)
--- NOTE | 2019-05-25 07:59 | W.PM.PROGNOT ---
Date of Service Date of service: 05/25/19 Time of Service: 07:59 Assessment and Plan Assessment and plan (1) (normal spontaneous vaginal delivery): Status: Acute Assessment and plan: PPD 2 s/p at term. Ok for discharge home today. Subjective Subjective Interval history since last seen: Doing well. Minimal lochia. Minimal perineal pain. Objective Objective Clinical Data: Vital Signs Pain Level 4 05/24/19 19:20 Laboratory Results WBC 8.75 k/cumm (4.4-10.8) 05/22/19 17:58 RBC 4.62 m/cumm (4.00-5.20) 05/22/19 17:58 Hgb 14.4 g/dL (12.0-15.5) 05/22/19 17:58 Hct 41.9 % (36.0-46.0) 05/22/19 17:58 MCV 90.7 fL (80-95) 05/22/19 17:58 MCH 31.2 pg (27.0-33.0) 05/22/19 17:58 MCHC 34.4 g/dL (32.0-36.0) 05/22/19 17:58 RDW 12.5 % (11.7-14.6) 05/22/19 17:58 Plt Count 210 x1000/uL (130-400) 05/22/19 17:58 MPV 11.0 fL (8.0-11.0) 05/22/19 17:58 Sodium 140 mmol/L (136-145) 05/22/19 17:58 Potassium 4.1 mmol/L (3.5-5.1) 05/22/19 17:58 Chloride 103 mmol/L (98-107) 05/22/19 17:58 Carbon Dioxide 22.5 mmol/L (21.0-32.0) 05/22/19 17:58 Anion Gap 14.5 mmol/L (3-11) H 05/22/19 17:58 BUN 13 mg/dL (7-18) 05/22/19 17:58 Creatinine 0.94 mg/dL (0.55-1.02) 05/22/19 17:58 Estimated GFR/1.73 m2 >= 60.00 (mL/min/1.73m2) 05/22/19 17:58 Glucose 87 mg/dL (74-106) 05/22/19 17:58 Calcium 9.6 mg/dL (8.5-10.1) 05/22/19 17:58 Total Bilirubin 0.7 mg/dL (0.2-1.0) 05/22/19 17:58 Conjugated Bilirubin 0.19 mg/dL (0.00-0.20) 05/22/19 17:58 AST 23 U/L (15-37) 05/22/19 17:58 ALT 16 U/L (14-59) 05/22/19 17:58 Alkaline Phosphatase 183 U/L (46-116) H 05/22/19 17:58 Total Protein 7.7 g/dL (6.4-8.2) 05/22/19 17:58 Albumin 3.4 g/dL (3.4-5.0) 05/22/19 17:58 Membranes Rupture Positive 05/22/19 16:30 Patient ABO/Rh AB Positive 05/22/19 17:58 Antibody Screen Negative 05/22/19 17:58
== END 2019-05-25 15:00 | disposition home or self-care (01) | DRG 807 ==
PROVIDERS: Obstetrics & Gynecology; Admitting Provider Obstetrics & Gynecology; PCP Nurse Practitioner Adult Health; Visit Provider Obstetrics & Gynecology
DX: O76 Abnormality in fetal heart rate and rhythm complicating labor and delivery (principal); Z37.0 Single live birth; O70.0 First degree perineal laceration during delivery; Z3A.38 38 weeks gestation of pregnancy
CPT/HCPCS: 80053; 80076; 84112; 85027; 86850; 86900; 86901; 99233; J3010; J3490

== ENCOUNTER 2019-07-05 14:23 | Outpatient (REF) | payer OTHER, SELFPAY ==
[2019-07-05 15:49] LABS: FREE T4 0.99 ng/dL (0.76-1.46); TSH 2.52 uIU/mL (0.36-3.74)
== END 2019-07-05 14:43 ==
LOC: LBN 14:23
PROVIDERS: PCP Nurse Practitioner Adult Health; Visit Provider Obstetrics & Gynecology
DX: E06.3 Autoimmune thyroiditis (principal)
CPT/HCPCS: 84439; 84443

== ENCOUNTER 2020-08-10 02:33 | Outpatient (CLI) | payer OTHER, SELFPAY ==
[2020-08-10 10:59] LABS: Kit/Specimen SENT
[2020-08-10 11:09] LABS: Abs Immature Grans 0.02 10^3/uL (0.0-0.06); Absolute Basophil Count 0.03 10^3/uL (0.0-0.2); Absolute Eosinophil Count 0.16 10^3/uL (0.0-0.7); Absolute Lymphocyte Count 1.73 10^3/uL (1.2-3.4); Absolute Monocyte Count 0.52 10^3/uL (0.1-0.8); Absolute Neutrophil Count 6.03 10^3/uL (1.2-6.7); Basophils % 0.4; Eosinophils % 1.9; HCT 39.1 % (36.0-46.0); HGB 13.7 g/dL (11.2-15.7); Immature Grans % 0.2; Lymphocytes % 20.4; MCH 30.6 pg (27.0-33.0); MCV 87.5 fL (80-95); MPV 10.3 fL (8.0-11.0); Monocytes % 6.1; Nucleated RBC 0 %; Platelet Count 275 10^3/uL (130-400); RBC 4.47 10^6/uL (3.93-5.22); RDW-SD 38.7 fL; WBC 8.49 10^3/uL (4.4-10.8)
[2020-08-10 11:55] LABS: TSH (W/Ref FT4) 2.69 uIU/mL (0.36-3.74)
[2020-08-13 10:22] LABS: HIV-1/2 Ag & Ab Screen Negative (Negative)
[2020-08-13 10:42] LABS: Hepatitis B Surface Ag Negative (Negative)
[2020-08-13 10:54] LABS: Hepatitis C Ab w Rflx HCV PCR Negative (Negative)
[2020-08-13 11:03] LABS: Syphilis Serology (RPR) Negative (Negative)
[2020-08-13 11:07] LABS: Varicella IgG Antibody Positive (See Note)
[2020-08-13 11:11] LABS: Rubella IgG Ab (UVM) Positive (See Note)
[2020-08-15 12:03] LABS: Result Summary NEGATIVE; Specimen WB Whole Blood
== END 2020-08-10 02:34 | disposition home or self-care (01) ==
PROVIDERS: Obstetrics & Gynecology; PCP Nurse Practitioner Adult Health; Visit Provider Obstetrics & Gynecology Gynecology
DX: Z34.91 Encounter for supervision of normal pregnancy, unspecified, first trimester (principal); Z11.4 Encounter for screening for human immunodeficiency virus [HIV]; Z11.59 Encounter for screening for other viral diseases; Z01.84 Encounter for antibody response examination
CPT/HCPCS: 86787; 86803; 86850; 86900; 86901; 87340; 87389; 81220; 84443; 85025; 86592; 86762

== ENCOUNTER 2020-09-03 03:04 | Outpatient (CLI) | payer OTHER, SELFPAY ==
[2020-09-03 10:47] LABS: HCT 37.4 % (36.0-46.0); MCH 30.5 pg (27.0-33.0); MCHC 34.8 % (32.0-36.0); MCV 87.8 fL (80-95); MPV 10.1 fL (8.0-11.0); Platelet Count 281 10^3/uL (130-400); RBC 4.26 10^6/uL (3.93-5.22); RDW 12.9 % (11.7-14.6); RDW-SD 41.5 fL; WBC 6.14 10^3/uL (4.4-10.8)
[2020-09-03 11:39] LABS: Source Nasal/Nares
[2020-09-03 14:11] LABS: COVID-19 PCR Negative (Negative)
== END 2020-09-03 03:05 | disposition home or self-care (01) ==
LOC: LBO 03:05
PROVIDERS: PCP Nurse Practitioner Adult Health; Visit Provider Obstetrics & Gynecology
DX: O34.32 Maternal care for cervical incompetence, second trimester (principal); Z3A.15 15 weeks gestation of pregnancy; Z20.822 Contact with and (suspected) exposure to COVID-19; Z01.818 Encounter for other preprocedural examination; Z01.812 Encounter for preprocedural laboratory examination
CPT/HCPCS: 36415; 85027; 86850; 86900; 86901; 87635

== ENCOUNTER 2020-09-05 06:02 | Day surgery (SDC) | payer OTHER, SELFPAY ==
[2020-09-05 06:18] VITALS: BP 110/73; PULSE 82; RESP 16; TEMP 36.6; O2SAT 100
[2020-09-05] MEDS: Lactated Ringers 1,000 ML 125 ML IV (06:44)
--- NOTE | 2020-09-05 07:08 | ANES.PREOP_ITS ---
General Info Date of Service Date Performed: 09/05/20 Height: 5 ft 6 in Weight: 70.42 kg Body Mass Index (BMI): 25.0 Surgical Procedure: Operation Date: 09/05/20 07:40 Proposed Procedures Side Surgeon p Cervical Cerclage Whitney May DO Meds Allergies and Home Medications Allergies Allergy/AdvReac Type Severity Reaction Status Date / Time No Known Allergies Allergy Verified 09/05/20 06:29 Home Medication Medication Instructions Recorded acetaminophen 500 mg tablet 500 mg PO Q6H PRN 04/21/18 vitamin with calcium 1 tab PO DAILY #90 tab 01/23/20 no.72-iron 27 mg-folic acid 1 mg tablet Current Visit Medications: Current Medications Generic Name Dose Route Start Last Admin Trade Name Freq PRN Reason Stop Dose Admin Ringer's Solution 1,000 mls @ 125 mls/hr 09/05/20 06:00 09/05/20 06:44 IV 10/04/20 23:59 125 mls/hr INFUSION PAULA Administration IV Miscellaneous Supplies 1 each 09/05/20 06:00 Iv Access IV 10/04/20 23:59 DIRECTED PAULA Sodium Chloride 0 ml 09/05/20 06:00 Normal Saline Flush 10 Ml Syr IV 10/04/20 23:59 PRN PRN Sodium Chloride 0 ml 09/05/20 06:00 Normal Saline 10 Ml Vial IJ 10/04/20 23:59 DIRECTED PRN Sterile Water 0 ml 09/05/20 06:00 Water,Injection,Sterile 10 Ml Vial IJ 10/04/20 23:59 DIRECTED PRN PFSH Active Problems Active Problems: Problem Status Onset Code HRP (high risk ) O09.90 Early stage of Z34.90 (normal spontaneous vaginal delivery) O80 Uterine fibroid in antepartum period O34.10, D25.9 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 History of Tricia's thyroiditis. HRP (high risk ) premature rupture of membranes 04/2018. 17W0D SRM clear fluid. Confirmed by speculum exam and OB ultrasound. Patient declined initial recommendation to the termination. Spontaneous in second trimester Spontaneous rupture of membranes at 17 W 2D went on to have spontaneous passage of a nonviable fetus at approximately 18 weeks. Retained placenta and required D&C Surgical History Surgical History History of D&C 05/06/2018 for retained placenta after spontaneous at 18 weeks estimated gestational age. Tobacco Smoking/Tobacco Use Status: Never Alcohol Alcohol Intake: never Substance Use Substance use: Never Substance use type: does not use Prental History History 2 Para 1 Hx # Term Pregnancies 1 Multiple births Hx # Pregnancies Ectopic pregnancies AB induced Hx Number of Living Children AB spontaneous 1 Past Pregnancies Del. Date GA/Weeks # Outcome Route Wgt Sex Labor Lgth Anesthes ia Location Prov Complic 04/14/18 19 No Unsuccessful vaginal 05/23/19 No Successful vaginal 3685.438 g Female [place] Delivery Date: 04/14/18 SAB at 19w1d retained placenta to OR By Cassie Butts Delivery Date: 05/23/19 No notes to display Vital Signs and Lab Results Vital Signs Most Recent Vital Signs in EMR: Most Recent Vital Signs Temp Pulse Resp BP Pulse Ox 36.6 C 82 16 110/73 100 09/05/20 06:18 09/05/20 06:18 09/05/20 06:18 09/05/20 06:18 09/05/20 06:18 Lab Results Blood Type / Crossmatch: Patient ABO/Rh AB Positive 09/03/20 10:09/03/20 Antibody Screen NEGATIVE 09/03/20 10:33 09/03/20 Complete Blood Count: White Blood Count 6.14 10^3/uL (4.4-10.8) 09/03/20 10:09/03/20 Red Blood Count 4.26 10^6/uL (3.93-5.22) 09/03/20 10:33 09/03/20 Hemoglobin 13.0 g/dL (11.2-15.7) 09/03/20 10:09/03/20 Hematocrit 37.4 % (36.0-46.0) 09/03/20 10:33 09/03/20 Platelet Count 281 10^3/uL (130-400) 09/03/20 10:33 09/03/20 Complete Metabolic Panel: No Data to Display Liver Function Panel: No Data to Display Coagulation Panel: No Data to Display Cardiac Panel: No Data to Display Arterial Blood Gas: No Data to Display Venous Blood Gas: No Data to Display Pancreas Panel: No Data to Display Thyroid Panel: Thyroid Stimulating Hormone (TSH) 2.69 uIU/mL (0.36-3.74) 08/10/20 10:47 08/10/20 Infectious Disease: Coronavirus (COVID-19)(PCR) Negative (Negative) 09/03/20 10:41 09/03/20 Coronavirus 2019 Source Nasal/Nares 09/03/20 10:41 09/03/20 HIV (1&2) Ag and Ab, 4th Generation Negative (Negative) 08/10/20 10:47 08/10/20 Hepatitis B Surface Antigen Negative (Negative) 08/10/20 10:47 08/10/20 Hepatitis C Antibody Negative (Negative) 08/10/20 10:47 08/10/20 Syphilis Serology Negative (Negative) 08/10/20 10:47 08/10/20 Blood Cultures: No Data to Display Toxicology Panel: No Data to Display Panel: No Data to Display Anesthesia Assessment and Plan Anesthesia History Personal History: No History of Anesthesia Complications Family History: No Family History of Anesthesia Complications Exercise Tolerance Exercise Tolerance: Metabolic Equivalents>4 Pertinent Negatives Pertinent Negatives: No Symptoms of GERD, No Major Cardiovascular Symptoms or Complaints and No Major Pulmonary Symptoms or Complaints Cardiac & Pulmonary Exam Cardiac Exam: Normal S1/S2 Heart Sounds Pulmonary Exam: Clear Bilateral Breath Sounds Airway Exam Known Difficult Airway: No Mallampati Class: 2 Mouth Opening: Normal (> 3cm) Thyromental Distance: Greater than 3 cm Neck Range of Motion: Full ROM Neck Circumference: Normal Teeth Condition: Normal Dentition ASA Classification ASA Score: ASA 2 Emergency Case?: No NPO Status NPO Status: NPO Clears >2 hours, Solids >8 hours Status Status: Positive HCG Anesthesia Plan Resuscitation Status: Full Code Anesthesia Technique: Spinal Anesthesia Airway Planned: Natural Airway Monitors Used: Standard Monitors
[2020-09-05 07:10] VITALS: BMI 25.0
--- NOTE | 2020-09-05 07:58 | W.PM.OP ---
Date of service: 09/05/20 Time of Service: 07:58 Operative Note Operative Note DATE OF PROCEDURE: 09/05/20 PRE-OP DIAGNOSIS: at 15 weeks gestation. History of cervical incompetence POST-OP DIAGNOSIS: same PROCEDURE: Cervical cerclage SURGEON: Whitney May ASSISTING SURGEON: Keiry Del Valle ANESTHESIA TYPE: Spinal Refer to Anesthesia Record ESTIMATED BLOOD LOSS: 5 PATHOLOGY: none sent COMPLICATIONS: None Patient was transported to: same day Patient's condition: stable Indications: History of premature rupture of membranes with incompetent cervix. History of her previous cervical cerclage. Findings: Normal length and caliber of cervix Procedure Description: Patient was taken the operating suite with an IV running. She is placed in the seated position and spinal anesthesia administered by anesthesia. Patient placed in the dorsal lithotomy position in yellowfin stirrups and prepped and draped in the usual sterile fashion. Bladder was emptied for approximately 50 cc of clear yellow urine. Exam under anesthesia revealed 15-week size uterus with a cervix that is patulous though long. Previous cerclage scarring identified. With Mersilene tape a circumferential stitch was placed in all 4 quadrants and tied at the anterior aspect of the cervix near to the cervical vaginal interface. Blood loss approximately 5 mL. Patient tolerated procedure without difficulty. Exam posterior stitch placement confirmed cervix that was long, closed, with stitch in place. Patient was taken recovery room in stable condition. Findings: Normal-appearing cervix with evidence of previous cerclage scarring Complications: None apparent EBL: 5 mL Pathology: None sent
[2020-09-05 08:00] VITALS: BP 124/78; PULSE 79; RESP 14; TEMP 36.3; O2SAT 100
[2020-09-05 08:30] VITALS: BP 113/76; PULSE 80; RESP 15; TEMP 36.5; O2SAT 97
--- NOTE | 2020-09-05 08:50 | W.ANESPOSTOP ---
Postoperative Evaluation Date, Time and Location Date Performed: 09/05/20 Time Performed: 08:50 Patient Location: Day Surgery Unit Vital Signs Most Recent Imported Vital Signs: Most Recent Vital Signs Temp Pulse Resp BP Pulse Ox 36.5 C 80 15 113/76 97 09/05/20 08:30 09/05/20 08:30 09/05/20 08:30 09/05/20 08:30 09/05/20 08:30 Pain Score Most Recent Pain Score: Most Recent Pain Score Pain Level 0 09/05/20 08:00 Assessment Mental Status: Awake (Alert & Oriented to Patient Baseline) Airway and Respiratory Function: Patent airway with normal (patient baseline) respiratory exam Cardiovascular Function: Hemodynamically Stable Hydration Status: Adequately Hydrated Nausea & Vomiting: No Nausea or Vomiting Pain: Pt. Denies Any Pain Peripheral Nerve Block: Patient did not receive a nerve block
== END 2020-09-05 10:06 | disposition home or self-care (01) ==
PROVIDERS: PCP Nurse Practitioner Adult Health; Visit Provider Obstetrics & Gynecology
PROC: 0UVC7ZZ Restriction of Cervix, Via Natural or Artificial Opening (ICD-10-PCS; CPT 57700; principal; 2020-09-05 07:30)
DX: O34.32 Maternal care for cervical incompetence, second trimester (principal); Z3A.15 15 weeks gestation of pregnancy
CPT/HCPCS: 59320; J2001

== ENCOUNTER 2020-10-05 01:39 | Outpatient (CLI) | payer OTHER, SELFPAY ==
[2020-10-08 10:41] LABS: AFP 35.3 ng/mL; Calculated age at EDD 29 years; Cigarette smoking status non-Smoker; GA used in risk estimate Scan estimate; IVF Pregnancy No; Initial or repeat testing Initial testing; Insulin dependent diabetes No; Maternal Weight 159 lbs; Number of Fetuses 1; Physician Phone Number 802-748-7300; Prev Pregnancy w/NTD No; RECOMMENDED FOLLOW UP None.; Results Summary Normal risk
== END 2020-10-05 01:40 | disposition home or self-care (01) ==
LOC: LBO 01:40
PROVIDERS: PCP Nurse Practitioner Adult Health; Visit Provider Obstetrics & Gynecology Gynecology
DX: O09.92 Supervision of high risk pregnancy, unspecified, second trimester (principal); O34.32 Maternal care for cervical incompetence, second trimester; Z3A.19 19 weeks gestation of pregnancy; Z36.89 Encounter for other specified antenatal screening
CPT/HCPCS: 36415; 82105

== ENCOUNTER 2020-12-06 03:55 | Outpatient (CLI) | payer OTHER, SELFPAY ==
[2020-12-06 09:24] LABS: Abs Immature Grans 0.03 10^3/uL (0.0-0.06); Absolute Basophil Count 0.03 10^3/uL (0.0-0.2); Absolute Eosinophil Count 0.17 10^3/uL (0.0-0.7); Absolute Monocyte Count 0.55 10^3/uL (0.1-0.8); Absolute Neutrophil Count 5.26 10^3/uL (1.2-6.7); Basophils % 0.4; Eosinophils % 2.3; HGB 13.4 g/dL (11.2-15.7); Immature Grans % 0.4; Lymphocytes % 19.9; MCH 31.8 pg (27.0-33.0); MCHC 34.4 % (32.0-36.0); MCV 92.4 fL (80-95); MPV 10.2 fL (8.0-11.0); Monocytes % 7.3; Neutrophils % 69.7; Nucleated RBC 0 %; Platelet Count 221 10^3/uL (130-400); RBC 4.22 10^6/uL (3.93-5.22); RDW 12.5 % (11.7-14.6); RDW-SD 42.5 fL; WBC 7.54 10^3/uL (4.4-10.8)
[2020-12-06 09:32] LABS: Glucose,1 Hr (Glucola) 144 mg/dL (80-140)
[2020-12-06 10:28] LABS: TSH 3.32 uIU/mL (0.36-3.74)
== END 2020-12-06 03:56 | disposition home or self-care (01) ==
LOC: LBO 03:55
PROVIDERS: Obstetrics & Gynecology; PCP Nurse Practitioner Adult Health; Visit Provider Obstetrics & Gynecology Gynecology
DX: O09.93 Supervision of high risk pregnancy, unspecified, third trimester (principal)
CPT/HCPCS: 36415; 82950; 84443; 85025

== ENCOUNTER 2020-12-12 02:52 | Outpatient (CLI) | payer OTHER, SELFPAY ==
[2020-12-12 11:17] LABS: Glucose 1 Hour 160 mg/dL
[2020-12-12 11:21] LABS: *AMPHETAMINES SCREEN URINE Negative (Negative); *BARBITURATES SCREEN URINE Negative (Negative); *BENZODIAZEPINES SCREEN URINE Negative (Negative); Cannabinoids THC Negative (Negative); Cocaine Screen,Urine Negative (Negative); METHADONE URINE SCREEN Negative (Negative); OPIATES URINE SCREEN Negative (Negative)
[2020-12-12 11:22] LABS: Tricyclic Antidepressants Negative (Negative)
[2020-12-12 13:19] LABS: Glucose 3 Hour 111 mg/dL
== END 2020-12-12 02:53 | disposition home or self-care (01) ==
LOC: LBO 02:52
PROVIDERS: PCP Nurse Practitioner Adult Health; Visit Provider Obstetrics & Gynecology
DX: O09.93 Supervision of high risk pregnancy, unspecified, third trimester; R73.09 Other abnormal glucose
CPT/HCPCS: 36415; 80307; 82951

== ENCOUNTER 2020-12-19 13:48 | Outpatient (CLI) | payer OTHER, SELFPAY ==
--- NOTE | 2020-12-19 10:00 | NS.NUTBLAN_ITS ---
Denisha was referred to Medical Nutrition Therapy for impaired glucose tolerance with a 1 hour glucola of 144mg/dl. Met Denisha at [facility]. 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 She is 29 weeks . No hx of GDM in previous . Weight gain appropriate. Does not have glucometer. Diet recall indicates well balanced whole foods and mostly home cooked meals. Avoids sweet beverages and convenience foods. Reviewed dietary strategies for glycemic management and encouraged daily exercise. Suspect will be able to control blood sugars with life style changes. Will follow prn.
== END 2020-12-19 13:49 | disposition home or self-care (01) ==
LOC: DS 13:51
PROVIDERS: PCP Nurse Practitioner Adult Health; Visit Provider Dietitian, Registered
DX: O99.810 Abnormal glucose complicating pregnancy (principal); Z3A.29 29 weeks gestation of pregnancy; Z71.3 Dietary counseling and surveillance
CPT/HCPCS: 97802

== ENCOUNTER 2021-01-04 10:46 | Outpatient (REF) | payer OTHER, SELFPAY | END 2021-01-04 10:47 | disposition home or self-care (01) | LOC: LBN 10:46 | PROVIDERS: PCP Nurse Practitioner Adult Health; Visit Provider Obstetrics & Gynecology | DX: N89.8 Other specified noninflammatory disorders of vagina (principal) | CPT/HCPCS: 87480; 87510; 87660 ==

== ENCOUNTER 2021-01-11 02:39 | Outpatient (CLI) | payer OTHER, SELFPAY ==
--- NOTE | 2021-01-11 07:39 | DI.US_ITS ---
Exam(s) US OB LATASHA WEIGHT EXAM: US OB LATASHA WEIGHT CLINICAL HISTORY: growth, cervical length,HIGHI RISK,o09.90. TECHNIQUE: Transabdominal obstetrical ultrasound performed. COMPARISON: US US OB 2-3 TRIMESTER from 10/05/2020 US US OB 2-3 TRIMESTER from 10/05/2020 US US OB CERVICAL LENGTH from 10/31/2020 US US OB CERVICAL LENGTH from 10/31/2020 FINDINGS:: Number of fetuses: One. position: Vertex. Placental location: Anterior. No evidence of previa. Cervical length 3.3 cm. Cervix is closed. BIOMETRIC DATA: BPD: 83mm = 30 3+2 weeks HC: 304mm = 30 3+5 weeks AC: 297mm = 30 3+5 weeks FL: 68 mm = 30 4+5 weeks EFW: 2313 Gms = 54% Composite Age: 33+ 6 weeks EDC: 23 February 2021 Heart Rate: 143 BPM Amniotic fluid index: 19.7 cm. Amount of fluid is within normal limits. IMPRESSION: size and weight are within the expected range. Cervical length 3.3 cm. DATA REPOSITORY:
== END 2021-01-11 02:59 ==
PROVIDERS: PCP Nurse Practitioner Adult Health; Visit Provider Obstetrics & Gynecology
DX: O09.93 Supervision of high risk pregnancy, unspecified, third trimester (principal); Z3A.33 33 weeks gestation of pregnancy
CPT/HCPCS: 76816

== ENCOUNTER 2021-01-18 18:54 | Inpatient (IN) | payer OTHER, SELFPAY ==
[2021-01-18] VITALS (77 sets, daily range): BP systolic 90–129; BP diastolic 52–78; PULSE 0–129; RESP 18; TEMP 36.9; O2SAT 94–99; BMI 58.7
[2021-01-18] MEDS: Normal Saline 1,000 ML 999 ML IV (18:52)
[2021-01-18 19:13] LABS: Abs Immature Grans 0.04 10^3/uL (0.0-0.06); Absolute Basophil Count 0.02 10^3/uL (0.0-0.2); Absolute Eosinophil Count 0.09 10^3/uL (0.0-0.7); Absolute Lymphocyte Count 1.43 10^3/uL (1.2-3.4); Absolute Monocyte Count 0.71 10^3/uL (0.1-0.8); Absolute Neutrophil Count 7.99 10^3/uL (1.2-6.7); Basophils % 0.2; Eosinophils % 0.9; HCT 39.1 % (36.0-46.0); HGB 13.5 g/dL (11.2-15.7); Immature Grans % 0.4; Lymphocytes % 13.9; MCH 31.7 pg (27.0-33.0); MCHC 34.5 % (32.0-36.0); MCV 91.8 fL (80-95); MPV 10.7 fL (8.0-11.0); Monocytes % 6.9; Neutrophils % 77.7; Nucleated RBC 0 %; Platelet Count 212 10^3/uL (130-400); RBC 4.26 10^6/uL (3.93-5.22); RDW 12.5 % (11.7-14.6); RDW-SD 41.9 fL; WBC 10.28 10^3/uL (4.4-10.8)
--- NOTE | 2021-01-18 19:31 | W.PM.OBHPL1 ---
Date of service: 01/18/21 Time of Service: 19:31 Assessment and Plan Assessment and plan (1) labor: Status: Acute Assessment and plan: Patient presents supracervical onset of lower abdominal painful contractions. Approximately every 4 minutes. Cervix is closed with cerclage in place, though somewhat effaced. Category 1, reactive tracing group B strep culture is pending. If no improvement with Procardia, may consider magnesium sulfate and cerclage removal. Efforts are being made to establish relationship with a tertiary care facility. . Patient will have IV hydration, for Procardia, laboratory studies, betamethasone, group B strep prophylaxis (2) HRP (high risk ): Status: Acute (3) Impaired glucose tolerance: Status: Acute (4) Cervical cerclage suture present in third trimester: Status: Acute OB-HPI Labor/Delivery History of Present Illness Reason for Visit: Patient seen in with severe lower abdominal interm Chief Complaint: Uterine Contractions. CHRISTIANO Calculator Estimated Delivery Date Method Current WG Current Estimate 02/25/21 Ultrasound #1 34w 4d Comments: Baby is moving and active. No bleeding, no leaking fluid. Normal discharge with cerclage in place denies fevers or chills. No nausea or vomiting. History of Present Expected Delivery Route/Plan Plan cerclage after 14w EGA. Anticipate vaginal delivery. MD care. Specific Issues/Plan - Hx 2nd trimester SROM. demise. 09/05/20 [place] cerclage. cervical lengths. - Hx of uterine fibroid with previous . 09/2020: Nl 2nd trimester u/s. No fibroid noted. - CF, AFP, aneuploidy testing done. Nl results.. Assessment: History Reviewed & Current Narrative: Patient has been seen [facility]. She had a cerclage placed at approximately 14 weeks. She has done well point. She had onset of lower abdominal pain consistent with contractions. She was seen and evaluated in triage with contractions approximately every 4 to 5 minutes. Cervix is closed which in place, cervix shortened to approximately 60% vertex position, -1 station. No bleeding. She has received IV fluids with hydration. Laboratory studies performed including CBC, type and screen, urinalysis, group B strep culture. She will have betamethasone for lung maturity and neuro protection. She will receive 1 dose cardiac to see if this helps with diminishing activity. Call was made to start who have small bed availability. Review of Systems All systems reviewed & are unremarkable except as noted in HPI and below Constitutional Constitutional: Denies anorexia, Denies body ache(s), Denies fatigue, Denies fever(s) and Denies poor appetite ENT Ears, Nose, Mouth, and Throat: Reports system reviewed and no additional complaints, except as documented Cardiovascular Cardiovascular: Reports system reviewed and no additional complaints, except as documented, Denies chest pain, Denies rapid heart rate and Denies lightheadedness Respiratory Respiratory: Reports system reviewed and no additional complaints, except as documented, Denies chest congestion and Denies cough Gastrointestinal Gastrointestinal: Reports system reviewed and no additional complaints, except as documented, Denies bloating, Denies cramping, Denies dyspepsia, Denies heartburn, Denies diarrhea, Denies nausea and Denies vomiting Genitourinary Genitourinary: Reports system reviewed and no additional complaints, except as documented, Reports as per HPI, Denies abnormal vaginal bleeding and Reports vaginal discharge Comments: Lower pelvic discomfort consistent with contractions Musculoskeletal Musculoskeletal: Reports system reviewed and no additional complaints, except as documented Neurologic Neurologic: Reports system reviewed and no additional complaints, except as documented Endocrine Endocrine: Denies fatigue [facility] Medical History (Updated 01/18/21 @ 19:38 by Whitney May DO) Cervical cerclage suture present in third trimester Early stage of Elevated glucose tolerance test Enlarged thyroid Normal TSH. History of Tricia's thyroiditis. HRP (high risk ) Impaired glucose tolerance labor premature rupture of membranes 04/2018. 17W0D SRM clear fluid. Confirmed by speculum exam and OB ultrasound. Patient declined initial recommendation to the termination. Spontaneous in second trimester Spontaneous rupture of membranes at 17 W 2D went on to have spontaneous passage of a nonviable fetus at approximately 18 weeks. Retained placenta and required D&C Surgical History History of D&C 05/06/2018 for retained placenta after spontaneous at 18 weeks estimated gestational age. Family History Mother Depression Social History Smoking/Tobacco Use Status: Never Smoking risk assessment performed?: Yes Alcohol Intake: never Drug use: Never Substance use type: does not use Household members: significant other Number of Children: 0 current occupation: [employer] Sexually active: Yes Do you feel safe at home: Yes Do you feel safe in your relationship?: Yes History History 2 Para 1 Hx # Term Pregnancies 1 Multiple births Hx # Pregnancies Ectopic pregnancies AB induced Hx Number of Living Children AB spontaneous 1 Past Pregnancies Del. Date GA/Weeks # Outcome Route Wgt Sex Labor Lgth Anesthesia Location Prov Complic 04/14/18 19 No Unsuccessful vaginal 05/23/19 No Successful vaginal 8 lb 2 oz Female Ed [place] Delivery Date: 04/14/18 SAB at 19w1d retained placenta to OR By Cassie Butts Delivery Date: 05/23/19 No notes to display Meds Allergies and Home Medications Allergies Allergy/AdvReac Type Severity Reaction Status Date / Time No Known Allergies Allergy Verified 01/04/21 08:50 Home Medications Medication Instructions Recorded Confirmed Type acetaminophen 500 mg tablet 500 mg PO Q6H PRN 04/21/18 01/04/21 History vitamin with calcium 1 tab PO DAILY #90 tab 01/23/20 01/04/21 Rx no.72-iron 27 mg-folic acid 1 mg tablet Exam Physical Exam Vital signs: Pulse BP 100 H 124/78 01/18/21 18:30 01/18/21 18:30 Detailed Labor and Delivery Exam Dilation: 0 Effacement (%): 60 station: -1 Cervix position: mid Consistency: soft Whipple Score: Cervical Points Exam 0 1 2 3 Dilation Closed 1-2cm 3-4 cm 5-6cm Effacement 0-30% 40-50% 60-70% 80% Consistency Firm Medium Soft Station -3 -2 -1,0 +1,+2 Position Posterior Mid Anterior Amniotic Membrane Status: Intact Monitor Mode: External Contraction Frequency(min): 4 Contraction Duration(sec): 60 Contraction Intensity: Mild/Moderate Fetus A Monitor Accelerations: 15 X 15 Monitor Decelerations: None Variability: Moderate (6-25 BPM) Presentation: Cephalic Categories: Category I Est. Weight: 4 lb 8 oz HEENT Exam HEENT Exam: Normal Detailed Neck Exam Neck exam general surgery: Present supple and full ROM Respiratory Exam Respiratory Exam: Normal Detail Cardiovascular Exam Cardiovascular: Present RRR, S1 and S2 Detailed Abdominal Exam Abdominal: Present soft; Absent guarding, firm and rigid Skin Exam Skin Exam: Normal Neurological Exam Neurological Exam: Normal DetailedPsychiatric Exam Psychiatric: Present normal affect, normal thought process, good insight and good judgment Results Abnormal Lab Findings: Abnormal Labs 01/18/21 16:58 Absolute Neutrophils 7.99 H Risk Assessment Risk for Shoulder Dystocia Historical/Initial OB: NEGATIVE FOR: Pelvic Abnormality, Pre- BMI>30, Previous Shoulder Dystocia or Previous Macrosomia Risk for Pre-Eclampsia Yes, if one or more: NEGATIVE FOR: Hx Pre-E/Gest HTN, Chronic HTN, Multiple Gestation, Pre-gestational DM, Renal Disease, Systemic Lupus or APA Syndrome Yes, if 2 or more: POSITIVE FOR: Nulliparity (Previous SROM at 17 weeks Will consult with MD marie: indication for ASA ) and ethinicty; NEGATIVE FOR: Age>= 35 yrs, >10yr btwn pregnancies, BMI>30, Mother/Sister w/ Pre-E or Previous IUGR Risk for Post- Hemorrhage Initial: NEGATIVE FOR: Multiple Gestation, Previous PPH, Known Clotting Deficiency, Grand Multiparity or Anticoagulation Risks Reviewed Risks Reviewed Upon Admission: Yes
[2021-01-18] MEDS: Betamet Acet/Betamet Na Ph Inj. 30 MG/5 ML 12 MG IM (19:45)
[2021-01-18] MEDS: Lactated Ringers 250 ML 500 ML IV (19:45)
[2021-01-18] MEDS: NIFEdipine 10 MG CAP PO (19:45)
[2021-01-18] MEDS: Penicillin G POT. 5,000,000 UNITS in Normal Saline 100 ML 200 UNITS IVPB (19:45)
[2021-01-18 19:54] LABS: Clarity Cloudy (Clear)
[2021-01-18 19:55] LABS: Bilirubin Negative (Negative); Blood Small (Negative); Glucose Negative (Negative); Ketones 15 mg/dL (Negative); Leukocyte Esterase Small (Negative); Nitrite Negative (Negative); Specific Gravity >= 1.030 (1.005-1.025); pH 6.5 (5-8)
[2021-01-18 20:11] LABS: Epithelial Cells Many HPF (Negative); RBC 0-2 HPF (0-2); WBC 20-50 HPF (0-5)
[2021-01-18 20:12] LABS: Bacteria Moderate HPF (Negative); C & S Indicated? No/Sq. Contamination; Crystals Negative HPF (Negative); Mucus Heavy (Negative)
--- NOTE | 2021-01-18 20:59 | ANES.PREOP_ITS ---
General Info Date of Service Date Performed: 01/18/21 Height: 5 ft 6 in Weight: 165 kg Body Mass Index (BMI): 58.7 Meds Allergies and Home Medications Allergies Allergy/AdvReac Type Severity Reaction Status Date / Time No Known Allergies Allergy Verified 01/04/21 08:50 Home Medication Medication Instructions Recorded acetaminophen 500 mg tablet 500 mg PO Q6H PRN 04/21/18 vitamin with calcium 1 tab PO DAILY #90 tab 01/23/20 no.72-iron 27 mg-folic acid 1 mg tablet Current Visit Medications: Current Medications Generic Name Dose Route Start Last Admin Trade Name Freq PRN Reason Stop Dose Admin Betamethasone Acet/Betameth SodPhos 12 mg 01/18/21 19:00 Betamet Acet/Betamet Na Ph Inj. 30 Mg/5 Ml IM 01/19/21 19:01 Q24H PAULA Ephedrine Sulfate 5 mg 01/18/21 20:35 Ephedrine 50 Mg/Ml Vial IVP DIRECTED PRN Fentanyl/Ropivacaine 200 ml 01/18/21 21:00 Fentanyl/Ropivacaine 2 Mcg/Ml And 0.1% 200 Ml Cadd Cassette EP DIRECTED PAULA Sodium Chloride 500 mls @ 0 mls/hr 01/18/21 18:54 Saline 500ml Bag IV PRN PRN As Directed Magnesium Sulfate 20 gm/ 500 mls @ 25 mls/hr 01/18/21 19:00 Device IV INFUSION [facility] Penicillin G Potassium 3,000, 50 mls @ 100 mls/hr 01/19/21 00:00 000 units/ Sodium Chloride IVPB Q4H PAULA Sodium Chloride 1,000 mls @ 125 mls/hr 01/18/21 19:00 Saline 1000ml Bag IV INFUSION PAULA Ringer's Solution 250 mls @ 500 mls/hr 01/18/21 20:35 IV 01/18/21 21:04 BOLUS ONE Ringer's Solution 500 mls @ 500 mls/hr 01/18/21 20:51 IV 01/18/21 21:50 BOLUS ONE IV Miscellaneous Supplies 1 each 01/18/21 19:00 Iv Access IV DIRECTED PAULA Naloxone HCl 0 mg 01/18/21 20:35 Naloxone 0.4 Mg/Ml Vial IVP DIRECTED PRN Sodium Chloride 0 ml 01/18/21 18:54 Normal Saline Flush 10 Ml Syr IVP PRN PRN PFSH Active Problems Active Problems: Problem Status Onset Code Cervical cerclage suture present in third trimester O34.33 labor O60.00 Encounter for care in third trimester of first Z34.03 Impaired glucose tolerance R73.02 Elevated glucose tolerance test R73.09 Encounter for care in second trimester of first Z34.02 HRP (high risk ) O09.90 Early stage of Z34.90 (normal spontaneous vaginal delivery) O80 Uterine fibroid in antepartum period O34.10, D25.9 Tricia's thyroiditis E06.3 Cervical insufficiency during in second trimester, antepartum O34.32 Cervical insufficiency during in first trimester, antepartum O34.31 History of D&C Z98.890 Spontaneous in second trimester O03.9 Enlarged thyroid E04.9 premature rupture of membranes Medical History Medical History (Updated 01/18/21 @ 19:38 by Whitney May DO) Cervical cerclage suture present in third trimester Early stage of Elevated glucose tolerance test Enlarged thyroid Normal TSH. History of Tricia's thyroiditis. HRP (high risk ) Impaired glucose tolerance labor premature rupture of membranes 04/2018. 17W0D SRM clear fluid. Confirmed by speculum exam and OB ultraso und. Patient declined initial recommendation to the termination. Spontaneous in second trimester Spontaneous rupture of membranes at 17 W 2D went on to have spontaneous passage of a nonviable fetus at approximately 18 weeks. Retained placenta and required D&C Surgical History Surgical History History of D&C 05/06/2018 for retained placenta after spontaneous at 18 weeks estimated gestational age. Tobacco Smoking/Tobacco Use Status: Never Alcohol Alcohol Intake: never Substance Use Substance use: Never Substance use type: does not use Prental History History 2 Para 1 Hx # Term Pregnancies 1 Multiple births Hx # Pregnancies Ectopic pregnancies AB induced Hx Number of Living Children AB spontaneous 1 Past Pregnancies Del. Date GA/Weeks # Outcome Route Wgt Sex Labor Lgth Anesthes ia Location Prov Complic 04/14/18 19 No Unsuccessful vaginal 05/23/19 No Successful vaginal 3685.438 g Female [place] Delivery Date: 04/14/18 SAB at 19w1d retained placenta to OR By Jose Elias Buttseen Delivery Date: 05/23/19 No notes to display Vital Signs and Lab Results Vital Signs Most Recent Vital Signs in EMR: Most Recent Vital Signs Pulse BP 108 H 114/63 01/18/21 19:35 01/18/21 19:35 Lab Results Result Diagrams: 01/18/21 16:58 Blood Type / Crossmatch: Patient ABO/Rh AB Positive 01/18/21 16:58 01/18/21 Antibody Screen NEGATIVE 01/18/21 16:58 01/18/21 Complete Blood Count: White Blood Count 10.28 10^3/uL (4.4-10.8) 01/18/21 16:58 01/18/21 Red Blood Count 4.26 10^6/uL (3.93-5.22) 01/18/21 16:58 01/18/21 Hemoglobin 13.5 g/dL (11.2-15.7) 01/18/21 16:58 01/18/21 Hematocrit 39.1 % (36.0-46.0) 01/18/21 16:58 01/18/21 Platelet Count 212 10^3/uL (130-400) 01/18/21 16:58 01/18/21 Complete Metabolic Panel: No Data to Display Liver Function Panel: No Data to Display Coagulation Panel: No Data to Display Cardiac Panel: No Data to Display Arterial Blood Gas: No Data to Display Venous Blood Gas: No Data to Display Pancreas Panel: No Data to Display Thyroid Panel: No Data to Display Infectious Disease: No Data to Display Blood Cultures: No Data to Display Toxicology Panel: No Data to Display Panel: No Data to Display Anesthesia Assessment and Plan Anesthesia History Personal History: No History of Anesthesia Complications Family History: No Family History of Anesthesia Complications Exercise Tolerance Exercise Tolerance: Metabolic Equivalents>4 Cardiac & Pulmonary Exam Cardiac Exam: Normal S1/S2 Heart Sounds Pulmonary Exam: Clear Bilateral Breath Sounds Implantable Cardiac Device Does patient have a Pacemaker or an ICD?: No Airway Exam Known Difficult Airway: No Mallampati Class: 2 Mouth Opening: Normal (> 3cm) Thyromental Distance: Greater than 3 cm Neck Range of Motion: Full ROM Neck Circumference: Normal Teeth Condition: Normal Dentition ASA Classification ASA Score: ASA 2 Emergency Case?: No NPO Status NPO Status: Full Stomach () Status Status: Confirmed Anesthesia Plan Resuscitation Status: Full Code Anesthesia Technique: Epidural Anesthesia Airway Planned: Natural Airway Monitors Used: Standard Monitors
--- NOTE | 2021-01-18 21:05 | W.PM.OBNL1 ---
Date of service: 01/18/21 Time of Service: 21:05 Pelvic Exam Dilation: 1 Effacement (%): 70 station: -1 Cervix Position: anterior Consistency: soft Vaginal Exam Presentation: Cephalic Contractions Monitor Mode: External Contraction Frequency(min): 3 Contraction Duration(sec): 60 Intensity: Moderate Fetus A Variability: Moderate (6-25 BPM) Accelerations: Present Decelerations: None Amniotic Membrane Status: Intact Assessment and Plan Assessment and plan (1) labor: Status: Acute Assessment and plan: Patient continues to have painful regular contractions despite fluid and Procardia. In light of this at 34 weeks and 4 days the decision was made to remove her cerclage stitch due to continued uterine contractions and activity in order to avoid cervical trauma. Patient has significant pain with contractions and with attempts at removal of the cerclage. Anesthesia was called for placement of epidural at patient's request. Will reattempt cerclage removal once patient is more comfortable. Pediatrics is aware of the potential delivery of baby at 34 weeks and 4 days and limited capacity for transfer. (2) Cervical cerclage suture present in third trimester: Status: Acute (3) Impaired glucose tolerance: Status: Acute Objective Abnormal lab results 01/18/21 01/18/21 Range/Units 16:58 18:24 Absolute Neutrophils 7.99 H (1.2-6.7) 10^3/uL Ur Specific [place] >= 1.030 H (1.005-1.025) Urine Protein 30 H (Negative) mg/dL Urine Ketones 15 H (Negative) mg/dL Urine Blood Small H (Negative) Urine Urobilinogen 1.0 H (Up TO 0.2) EU/dL Urine WBC 20-50 H (0-5) HPF Pulse BP 108 H 114/63 01/18/21 19:35 01/18/21 19:35 Laboratory Results WBC 10.28 10^3/uL (4.4-10.8) 01/18/21 16:58 RBC 4.26 10^6/uL (3.93-5.22) 01/18/21 16:58 Hgb 13.5 g/dL (11.2-15.7) 01/18/21 16:58 Hct 39.1 % (36.0-46.0) 01/18/21 16:58 MCV 91.8 fL (80-95) 01/18/21 16:58 MCH 31.7 pg (27.0-33.0) 01/18/21 16:58 MCHC 34.5 % (32.0-36.0) 01/18/21 16:58 RDW 12.5 % (11.7-14.6) 01/18/21 16:58 Plt Count 212 10^3/uL (130-400) 01/18/21 16:58 MPV 10.7 fL (8.0-11.0) 01/18/21 16:58 Immature Gran % 0.4 01/18/21 16:58 Neutrophils % 77.7 01/18/21 16:58 Lymphocytes % 13.9 01/18/21 16:58 Monocytes % 6.9 01/18/21 16:58 Eosinophils % 0.9 01/18/21 16:58 Basophils % 0.2 01/18/21 16:58 Nucleated RBC % 0 % 01/18/21 16:58 Absolute Neutrophils 7.99 10^3/uL (1.2-6.7) H 01/18/21 16:58 Absolute Lymphocytes 1.43 10^3/uL (1.2-3.4) 01/18/21 16:58 Absolute Monocytes 0.71 10^3/uL (0.1-0.8) 01/18/21 16:58 Absolute Eosinophils 0.09 10^3/uL (0.0-0.7) 01/18/21 16:58 Absolute Basophils 0.02 10^3/uL (0.0-0.2) 01/18/21 16:58 Urine Color Yellow (Yellow) 01/18/21 18:24 Urine Clarity Cloudy (Clear) 01/18/21 18:24 Urine pH 6.5 (5-8) 01/18/21 18:24 Ur Specific [place] >= 1.030 (1.005-1.025) H 01/18/21 18:24 Urine Protein 30 mg/dL (Negative) H 01/18/21 18:24 Urine Ketones 15 mg/dL (Negative) H 01/18/21 18:24 Urine Blood Small (Negative) H 01/18/21 18:24 Urine Nitrite Negative (Negative) 01/18/21 18:24 Urine Bilirubin Negative (Negative) 01/18/21 18:24 Urine Urobilinogen 1.0 EU/dL (Up TO 0.2) H 01/18/21 18:24 Ur Leukocyte Esterase Small (Negative) 01/18/21 18:24 Urine RBC 0-2 HPF (0-2) 01/18/21 18:24 Urine WBC 20-50 HPF (0-5) H 01/18/21 18:24 Ur Epithelial Cells Many HPF (Negative) 01/18/21 18:24 Urine Crystals Negative HPF (Negative) 01/18/21 18:24 Urine Bacteria Moderate HPF (Negative) 01/18/21 18:24 Urine Mucus Heavy (Negative) 01/18/21 18:24 Ur Culture Indicated? No/Sq. Contamination 01/18/21 18:24 Urine Glucose Negative mg/dL (Negative) 01/18/21 18:24 COVID-19 Source NASOPHARYX 01/18/21 21:00 Patient ABO/Rh AB Positive 01/18/21 16:58 Antibody Screen NEGATIVE 01/18/21 16:58 Subjective Interval history since last seen: Patient seen, continues to have contractions approximately every 3 to 4 minutes despite fluid bolus and Procardia dosing. She has received betamethasone 1 dose of 12 mg IM. She received her first dose of penicillin G for group B strep prophylaxis. Group B strep culture is pending. She was moved to a labor room. Due to her increased pain with contractions and regularity of contractions, decision was made to remove her cerclage stitch. After attempted visualization with the cervix , cerclage stitch is visualized and able to be grasped, however without good visualization unable to clip the suture due to patient discomfort. In light of regular contractions, progression of labor, and need for cerclage removal, patient requests epidural and anesthesia is called for placement of epidural for better pain control. We will reevaluate her cervical cerclage after her epidural in hopes of being able to remove this at the bedside. Patient is asked quizzically uncomfortable with her contractions. heart rate is in the 160s weeks with accelerations. As of now after conversation with both tertiary care centers who are in proximity [facility] currently has no available maternity beds or center beds though may have availability. [facility] has no beds accessible. Patient continues to have contractions and transportation to a further location which may be as remote as [facility] an available. In light of this conversation was had with pediatrics who agrees that the best option would be for careful monitoring and delivering here if necessary followed by transfer if baby needs additional level of care. This has been discussed ongoing with patient. Her is now at the bedside. Results Hemoglobin/Hematocrit: Hgb 13.5 g/dL (11.2-15.7) 01/18/21 16:58 Hct 39.1 % (36.0-46.0) 01/18/21 16:58 Abnormal Lab Findings: Abnormal Labs 01/18/21 01/18/21 16:58 18:24 Absolute Neutrophils 7.99 H Ur Specific [place] >= 1.030 H Urine Protein 30 H Urine Ketones 15 H Urine Blood Small H Urine Urobilinogen 1.0 H Urine WBC 20-50 H
[2021-01-18] MEDS: FentaNYL/ROPIvacaine 2 mcg/ml and 0.1% 200 ML CADD Cassette EP (21:34)
--- NOTE | 2021-01-18 21:46 | W.ANESNEU ---
Epidural/Spinal Catheter Date Performed: 01/18/21 Procedure Start: 21:14 Procedure Stop: 21:47 Requesting Provider: Whitney May Procedure Location: Obstetrics Reason Performed: Labor Epidural Standard Monitors Applied: ECG, Blood Pressure, SpO2 and See EMR for corresponding vital signs Patient Position: Sitting Sedation Given (Indicate Dose Given): No Sedation given Patient Mental Status: Awake Sterility: Hand Hygiene, Surgical Cap, Surgical Mask, Sterile Gloves, Sterile Drape/Sheet and Chlorhexidine Procedure Location: L3-L4 Interspace Epidural Needle: Tuohy 17 Guage Needle Length: 3.5 Inch Needle Approach: Midline Epidural Procedure: Skin Prepped, Sterile Drape Placed, 1% Lidocaine to skin and subcutaneous tissue with 25G needle, Tuohy Needle placed, AMOL to Saline Used, Epidural Catheter Placed, Negative Heme, Negative CSF Flow and Tuohy Needle Removed Catheter Placed?: Catheter Placed Test Dose (Indicate Dose Given): 3ml 1.5% Lidocaine with 1:200K Epinephrine Given and Negative Test Dose Loss of Resistance Depth (cm): 7 Catheter depth at skin (cm): 13 Dressing: Sorbaview Dressing Placed, Mastisol Used and Dressing reinforced with Tape Epidural Provider Bolus (Indicate Dose Given): Total bolus dose given in 3-5 ml divided doses and Total Bupivacaine 0.25% Given (ml) Dose:: 6 ml Additives (Indicate Dose Given ): Fentanyl PF Dose:: 100 mcg Infusion Medication: Medication Infusion Began Medication Infusion: Ropivacaine 0.1% with Fentanyl 2mcg/ml Maintenance Infusion Rate (ml/hour): 10 PCEA Bolus Dose (ml): 5 Post Procedure Pain score (0-10): 0 Block Level: Other (Bilateral comfort) Paresthesia: None Ultrasound: Not Used Number of Attempts (See previous attempts in note section): 1 Procedure Tolerated: No Complications and Patient tolerated well Procedure Outcome: Successful Procedure Comment:: Slight numbness at top of thighs bilaterally. Good leg strength maintained. Performed By: Araceli Whitfield
[2021-01-18 21:57] LABS: COVID-19 PCR Negative (Negative)
--- NOTE | 2021-01-18 22:23 | PGE_ITS ---
Date of service: 01/18/21 Time of Service: 22:23 Pelvic Exam Dilation: 4 Effacement (%): 80 station: -1 Cervix Position: anterior Consistency: soft Vaginal Exam Presentation: Vertex Contractions Monitor Mode: External Contraction Frequency(min): 4 Contraction Duration(sec): 60 Intensity: Moderate Fetus A Variability: Moderate (6-25 BPM) Categories: Category I FHR Rhythm: Regular Accelerations: 15 X 15 Decelerations: None Amniotic Membrane Status: Intact Assessment and Plan Assessment and plan (1) labor: Status: Acute Assessment and plan: labor despite fluids and Procardia. Continued contractions. Cervical cerclage stitch removed without difficulty after epidural for pain control. Cervix rapidly progressed to 4 cm, bulging bag of water. Anticipate vaginal delivery. Patient is status post 1 course of steroids, and 1 dose of penicillin for group B strep prophylaxis. Pediatric service aware (2) Cervical cerclage suture present in third trimester: Status: Acute (3) Impaired glucose tolerance: Status: Acute Objective Abnormal lab results 01/18/21 01/18/21 Range/Units 16:58 18:24 Absolute Neutrophils 7.99 H (1.2-6.7) 10^3/uL Ur Specific [place] >= 1.030 H (1.005-1.025) Urine Protein 30 H (Negative) mg/dL Urine Ketones 15 H (Negative) mg/dL Urine Blood Small H (Negative) Urine Urobilinogen 1.0 H (Up TO 0.2) EU/dL Urine WBC 20-50 H (0-5) HPF Temp Pulse Resp BP Pulse Ox 98.4 F 105 H 18 102/60 97 01/18/21 21:39 01/18/21 22:21 01/18/21 21:39 01/18/21 22:21 01/18/21 22:20 Laboratory Results WBC 10.28 10^3/uL (4.4-10.8) 01/18/21 16:58 RBC 4.26 10^6/uL (3.93-5.22) 01/18/21 16:58 Hgb 13.5 g/dL (11.2-15.7) 01/18/21 16:58 Hct 39.1 % (36.0-46.0) 01/18/21 16:58 MCV 91.8 fL (80-95) 01/18/21 16:58 MCH 31.7 pg (27.0-33.0) 01/18/21 16:58 MCHC 34.5 % (32.0-36.0) 01/18/21 16:58 RDW 12.5 % (11.7-14.6) 01/18/21 16:58 Plt Count 212 10^3/uL (130-400) 01/18/21 16:58 MPV 10.7 fL (8.0-11.0) 01/18/21 16:58 Immature Gran % 0.4 01/18/21 16:58 Neutrophils % 77.7 01/18/21 16:58 Lymphocytes % 13.9 01/18/21 16:58 Monocytes % 6.9 01/18/21 16:58 Eosinophils % 0.9 01/18/21 16:58 Basophils % 0.2 01/18/21 16:58 Nucleated RBC % 0 % 01/18/21 16:58 Absolute Neutrophils 7.99 10^3/uL (1.2-6.7) H 01/18/21 16:58 Absolute Lymphocytes 1.43 10^3/uL (1.2-3.4) 01/18/21 16:58 Absolute Monocytes 0.71 10^3/uL (0.1-0.8) 01/18/21 16:58 Absolute Eosinophils 0.09 10^3/uL (0.0-0.7) 01/18/21 16:58 Absolute Basophils 0.02 10^3/uL (0.0-0.2) 01/18/21 16:58 Urine Color Yellow (Yellow) 01/18/21 18:24 Urine Clarity Cloudy (Clear) 01/18/21 18:24 Urine pH 6.5 (5-8) 01/18/21 18:24 Ur Specific [place] >= 1.030 (1.005-1.025) H 01/18/21 18:24 Urine Protein 30 mg/dL (Negative) H 01/18/21 18:24 Urine Ketones 15 mg/dL (Negative) H 01/18/21 18:24 Urine Blood Small (Negative) H 01/18/21 18:24 Urine Nitrite Negative (Negative) 01/18/21 18:24 Urine Bilirubin Negative (Negative) 01/18/21 18:24 Urine Urobilinogen 1.0 EU/dL (Up TO 0.2) H 01/18/21 18:24 Ur Leukocyte Esterase Small (Negative) 01/18/21 18:24 Urine RBC 0-2 HPF (0-2) 01/18/21 18:24 Urine WBC 20-50 HPF (0-5) H 01/18/21 18:24 Ur Epithelial Cells Many HPF (Negative) 01/18/21 18:24 Urine Crystals Negative HPF (Negative) 01/18/21 18:24 Urine Bacteria Moderate HPF (Negative) 01/18/21 18:24 Urine Mucus Heavy (Negative) 01/18/21 18:24 Ur Culture Indicated? No/Sq. Contamination 01/18/21 18:24 Urine Glucose Negative mg/dL (Negative) 01/18/21 18:24 COVID-19 Source NASOPHARYX 01/18/21 21:00 SARS-CoV-2 (PCR) Negative (Negative) 01/18/21 21:00 Patient ABO/Rh AB Positive 01/18/21 16:58 Antibody Screen NEGATIVE 01/18/21 16:58 Subjective Interval history since last seen: Patient seen. Comfortable with epidural. Continues to have contractions every 4 minutes. Benefits alternatives of cerclage removal explained to the patient.. Results Hemoglobin/Hematocrit: Hgb 13.5 g/dL (11.2-15.7) 01/18/21 16:58 Hct 39.1 % (36.0-46.0) 01/18/21 16:58 Abnormal Lab Findings: Abnormal Labs 01/18/21 01/18/21 16:58 18:24 Absolute Neutrophils 7.99 H Ur Specific [place] >= 1.030 H Urine Protein 30 H Urine Ketones 15 H Urine Blood Small H Urine Urobilinogen 1.0 H Urine WBC 20-50 H Procedure Procedures: Other (Speculum inserted. Cervix prepped with Betadine. Cerclage stitch identified, grasped, and cut. Removed intact)
[2021-01-18] MEDS: Lactated Ringers 500 ML IV (23:05)
--- NOTE | 2021-01-18 23:12 | W.PM.OBNL1 ---
Date of service: 01/18/21 Time of Service: 23:12 Informed Consent Informed Consent: Augmentation of Labor (Verbal discussion regarding artificial rupture) Pelvic Exam Dilation: 6 Effacement (%): 80 station: -2 Consistency: soft Contractions Monitor Mode: External Contraction Frequency(min): 4 Fetus A Heart Rate Baseline: 180 Presentation: Cephalic Variability: Moderate (6-25 BPM) Categories: Category II Assessment Note: Return. Pediatrics. Will artificially rupture membranes when pediatrics present antibiotics administered Objective Abnormal lab results 01/18/21 01/18/21 Range/Units 16:58 18:24 Absolute Neutrophils 7.99 H (1.2-6.7) 10^3/uL Ur Specific [place] >= 1.030 H (1.005-1.025) Urine Protein 30 H (Negative) mg/dL Urine Ketones 15 H (Negative) mg/dL Urine Blood Small H (Negative) Urine Urobilinogen 1.0 H (Up TO 0.2) EU/dL Urine WBC 20-50 H (0-5) HPF Temp Pulse Resp BP Pulse Ox 98.4 F 101 H 18 107/65 97 01/18/21 23:04 01/18/21 23:11 01/18/21 21:39 01/18/21 22:57 01/18/21 23:10 Laboratory Results WBC 10.28 10^3/uL (4.4-10.8) 01/18/21 16:58 RBC 4.26 10^6/uL (3.93-5.22) 01/18/21 16:58 Hgb 13.5 g/dL (11.2-15.7) 01/18/21 16:58 Hct 39.1 % (36.0-46.0) 01/18/21 16:58 MCV 91.8 fL (80-95) 01/18/21 16:58 MCH 31.7 pg (27.0-33.0) 01/18/21 16:58 MCHC 34.5 % (32.0-36.0) 01/18/21 16:58 RDW 12.5 % (11.7-14.6) 01/18/21 16:58 Plt Count 212 10^3/uL (130-400) 01/18/21 16:58 MPV 10.7 fL (8.0-11.0) 01/18/21 16:58 Immature Gran % 0.4 01/18/21 16:58 Neutrophils % 77.7 01/18/21 16:58 Lymphocytes % 13.9 01/18/21 16:58 Monocytes % 6.9 01/18/21 16:58 Eosinophils % 0.9 01/18/21 16:58 Basophils % 0.2 01/18/21 16:58 Nucleated RBC % 0 % 01/18/21 16:58 Absolute Neutrophils 7.99 10^3/uL (1.2-6.7) H 01/18/21 16:58 Absolute Lymphocytes 1.43 10^3/uL (1.2-3.4) 01/18/21 16:58 Absolute Monocytes 0.71 10^3/uL (0.1-0.8) 01/18/21 16:58 Absolute Eosinophils 0.09 10^3/uL (0.0-0.7) 01/18/21 16:58 Absolute Basophils 0.02 10^3/uL (0.0-0.2) 01/18/21 16:58 Urine Color Yellow (Yellow) 01/18/21 18:24 Urine Clarity Cloudy (Clear) 01/18/21 18:24 Urine pH 6.5 (5-8) 01/18/21 18:24 Ur Specific [place] >= 1.030 (1.005-1.025) H 01/18/21 18:24 Urine Protein 30 mg/dL (Negative) H 01/18/21 18:24 Urine Ketones 15 mg/dL (Negative) H 01/18/21 18:24 Urine Blood Small (Negative) H 01/18/21 18:24 Urine Nitrite Negative (Negative) 01/18/21 18:24 Urine Bilirubin Negative (Negative) 01/18/21 18:24 Urine Urobilinogen 1.0 EU/dL (Up TO 0.2) H 01/18/21 18:24 Ur Leukocyte Esterase Small (Negative) 01/18/21 18:24 Urine RBC 0-2 HPF (0-2) 01/18/21 18:24 Urine WBC 20-50 HPF (0-5) H 01/18/21 18:24 Ur Epithelial Cells Many HPF (Negative) 01/18/21 18:24 Urine Crystals Negative HPF (Negative) 01/18/21 18:24 Urine Bacteria Moderate HPF (Negative) 01/18/21 18:24 Urine Mucus Heavy (Negative) 01/18/21 18:24 Ur Culture Indicated? No/Sq. Contamination 01/18/21 18:24 Urine Glucose Negative mg/dL (Negative) 01/18/21 18:24 COVID-19 Source NASOPHARYX 01/18/21 21:00 SARS-CoV-2 (PCR) Negative (Negative) 01/18/21 21:00 Patient ABO/Rh AB Positive 01/18/21 16:58 Antibody Screen NEGATIVE 01/18/21 16:58 Subjective Interval history since last seen: Patient seen, comfortable with epidural. No pressure. Somewhat anxious regarding pending delivery. Questions answered. Baby with tachycardia in the 180s. Moderate variability fluid bolus given. Second dose of penicillin G to be infused now. Will add Zithromax. Cervical exam, 6 cm, 80%, 2 with a bulging bag of water. Discussed findings with patient and . Pediatrics notified. Tylenol given. Post dose of antibiotics. Pediatrics present, will have artificial rupture of membranes to expedite delivery. Results Hemoglobin/Hematocrit: Hgb 13.5 g/dL (11.2-15.7) 01/18/21 16:58 Hct 39.1 % (36.0-46.0) 01/18/21 16:58 Abnormal Lab Findings: Abnormal Labs 01/18/21 01/18/21 16:58 18:24 Absolute Neutrophils 7.99 H Ur Specific [place] >= 1.030 H Urine Protein 30 H Urine Ketones 15 H Urine Blood Small H Urine Urobilinogen 1.0 H Urine WBC 20-50 H
[2021-01-18] MEDS: Penicillin G POT. 3,000,000 UNITS in Normal Saline 50 ML 100 UNITS IVPB (23:22)
[2021-01-18] MEDS: Acetaminophen 500 MG TAB 1000 MG PO (23:26)
[2021-01-18] MEDS: AZITHROMYCIN 500 MG in Normal Saline 250 ML 250 MG IVPB (23:45)
[2021-01-19] VITALS (13 sets, daily range): BP systolic 87–113; BP diastolic 52–70; PULSE 0–122; RESP 16–18; TEMP 36.6–36.9
[2021-01-19] MEDS: Oxytocin/Normal Saline 30 UNIT/500 ML BAG 95 UNITS IV (00:37)
--- NOTE | 2021-01-19 01:43 | W.OBDELIVERY ---
Date of service: 01/19/21 Time of Service: 01:43 OB Labor/ Delivery Information Baby A Delivery Delivery Method: Spontaneaous Presentation: Cephalic Cephalic Position: Vertex Vertex Position: Left Occipital Posterior Cord Description-Baby A: 3 Vessels Amniotic Fluid: Clear Delivery Outcome: Liveborn Note: Patient had progressed to completely dilated. Baby was having episodes of tachycardia with heart rates in the 180s. She did receive 2 doses of penicillin for group B strep prophylaxis due to unknown status and an additional 0 dose of Zithromax due to maternal and tachycardia due to suspicion of chorioamnionitis. She had artificial rupture of membranes for copious clear fluid and vertex was noted to be at the +1 station. Second stage huddle was performed. Pediatrics was present. With good but brief maternal effort the vertex delivered over an intact perineum. There was no evidence of nuchal cord, shoulders followed spontaneously with ease. Three-vessel cord was noted and clamped and cut and the baby was handed off then to the waiting care provider. At this point cord blood sample and cord blood gases were both obtained and the placenta delivered spontaneously and was found to be intact. There was noted to be some adherent clot at the lateral aspect of the placenta consistent with a marginal abruption. On inspection of the perineum there were no perineal, cervical, or vaginal lacerations noted. Qualitative blood loss was 150 cc. Sponge lap and needle counts were correct x2 and mom and baby were in stable condition after delivery. Appropriate bonding was observed. Providers Doctor: Whitney May [employer] Sales Manager: Araceli Whitfield [employer] Supervisor: Fatuma Del Rio Nurse: Whit Robledo Nurse: Stephanie Johnston Other: Jessica Johnston Labor/Delivery Information Number of Babies in Womb: 1 Steroids Given: Partial Course Group Beta Strep: Done-Result Unknown Antibiotics Administered: Yes Number of Doses of Antibiotics: 2 Rubella Status: Immune Blood Type: AB+ Varicella Immunity: Immune Maternal Complications: None and Other Shoulder Dystocia: No Stages of Labor Onset of Labor Date: 01/18/21 Onset of Labor Time: 19:45 Complete Dilatation Date: 01/19/21 Complete Dilatation Time: 00:07 Labor - Stage 1 Duration: 24 hours and 0 minutes ROM Baby A: 01/19/21 ROM Baby A: 00:08 ROM Total Time- Baby A: [id number] Infant Delivery Date-Baby A: 01/19/21 Infant Delivery Time-Baby A: 00:21 Labor Stage 2 Duration: 14 minutes Placenta Delivery Date-Baby A: 01/19/21 Placenta Delivery Time-Baby A: 00:32 Labor-Stage 3 Duration: 11 minutes Total Length of Labor-Baby A: 4 hours and 36 minutes Placenta Cultured: No Placenta Status: Delivered Baby A Gender: Female Gestational Status: (<34 wks) Gestational Age in Weeks/Days: 34 Weeks and 5 Days Score-1 Minute Interval(Baby A) Heart Rate-1 minute: 100 BPM or Greater Respiratory Effort- 1 minute: Spontaneous/Strong Cry Muscle Tone-1 minute: Active Movement Reflex Response-1 minute: Prompt Response Color-1 minute: Pallor or Cyanosis Total Score-1 minute: 8 Score-5 Minute Interval(Baby A) Heart Rate- 5 minute: 100 BPM or Greater Respiratory Effort-5 minute: Spontaneous/Strong Cry Muscle Tone-5 minute: Active Movement Reflex Response-5 minute: Prompt Response Color-5 minute: Bluish Hands or Feet Total Score- 5 minute: 9 Hemorrrhage Note Total Blood Loss for PPH Event Quantitative Blood Loss: 150
[2021-01-19] MEDS: Acetaminophen 325 MG TAB 650 MG PO (08:22)
[2021-01-19 15:48] LABS: HCT 37.6 % (36.0-46.0); MCHC 34.6 % (32.0-36.0); MCV 92.6 fL (80-95); MPV 10.6 fL (8.0-11.0); Platelet Count 207 10^3/uL (130-400); RBC 4.06 10^6/uL (3.93-5.22); RDW 12.4 % (11.7-14.6); RDW-SD 42.4 fL; WBC 19.44 10^3/uL (4.4-10.8)
--- NOTE | 2021-01-19 17:38 | W.PM.OBPNV1 ---
Date of service: 01/19/21 Time of Service: 17:39 Subjective Subjective Interval history: Doing well. Pain well controlled Patient comments: No complaints [place] baby status: Doing well and Nursing well Exam Physical Exam Vital signs: Temp Pulse Resp BP Pulse Ox 97.9 F 101 H 18 103/65 96 01/19/21 11:17 01/19/21 01:28 01/18/21 21:39 01/19/21 11:17 01/18/21 23:45 HEENT Exam HEENT Exam: Normal Respiratory Exam Respiratory Exam: Normal Cardiovascular Exam Cardiovascular Exam: Normal Fundal Exam Fundus: Below Umbilicus and Firm Extremities Exam Extremity Exam: Normal Results Hemoglobin/Hematocrit: Hgb 13.0 g/dL (11.2-15.7) 01/19/21 15:40 Hct 37.6 % (36.0-46.0) 01/19/21 15:40 Abnormal Lab Findings: Abnormal Labs 01/18/21 01/18/21 01/19/21 16:58 18:24 15:40 WBC 19.44 H D Absolute Neutrophils 7.99 H Ur Specific [place] >= 1.030 H Urine Protein 30 H Urine Ketones 15 H Urine Blood Small H Urine Urobilinogen 1.0 H Urine WBC 20-50 H
[2021-01-19] MEDS: Ibuprofen 600 MG TAB PO (19:43)
--- NOTE | 2021-01-19 21:22 | W.ANESPOSTOP ---
Postoperative Evaluation Date, Time and Location Date Performed: 01/19/21 Time Performed: 20:10 Patient Location: Obstetrics Vital Signs Most Recent Imported Vital Signs: Most Recent Vital Signs Temp Pulse Resp BP Pulse Ox 36.7 C 80 16 101/69 96 01/19/21 19:50 01/19/21 19:50 01/19/21 19:50 01/19/21 19:50 01/18/21 23:45 Pain Score Most Recent Pain Score: Most Recent Pain Score Pain Level [Lower Abdomen] 3 01/19/21 19:33 Pain Level 4 01/19/21 08:22 Assessment Mental Status: Awake (Alert & Oriented to Patient Baseline) Airway and Respiratory Function: Patent airway with normal (patient baseline) respiratory exam Cardiovascular Function: Hemodynamically Stable Hydration Status: Adequately Hydrated Nausea & Vomiting: No Nausea or Vomiting Pain: Pain is tolerable per patient Peripheral Nerve Block: Patient did not receive a nerve block
[2021-01-20] MEDS: Acetaminophen 325 MG TAB 650 MG PO ×3 (00:10→20:45)
[2021-01-20 04:45] VITALS: BP 111/75; PULSE 80; RESP 16; TEMP 36.5
[2021-01-20] MEDS: Ibuprofen 600 MG TAB PO ×2 (07:50→20:45)
[2021-01-20 08:28] VITALS: BP 112/76; PULSE 80; TEMP 36.4
--- NOTE | 2021-01-20 09:59 | OBPPV_ITS ---
Date of service: 01/20/21 Time of Service: 09:59 Assessment and Plan Assessment and plan (1) (normal spontaneous vaginal delivery): Status: Acute Assessment and plan: Patient is day #1 post normal spontaneous vaginal delivery after labor with a cerclage in place. Cerclage removed. Patient delivered a viable female at 35 weeks and 5 days. She is doing well . We would anticipate her discharge from the hospital tomorrow with baby staying as a border until appropriate time for discharge. She is working on breast-feeding without particular difficulty (2) delivery: Status: Acute Subjective Subjective Interval history: Patient was seen, examined, care plan discussed. She is doing well. She has not slept much, and is working on breast-feeding. Emotionally she is doing well. Anticipation would be for discharge from care tomorrow and staying as a board Patient comments: No complaints and Pain well controlled baby status: Doing well, Nursing well, Rooming in and Other (Late .) Exam Physical Exam Vital signs: Temp Pulse Resp BP Pulse Ox 97.5 F L 80 16 112/76 96 01/20/21 08:28 01/20/21 08:28 01/20/21 04:45 01/20/21 08:28 01/18/21 23:45 Constitutional Constitutional: no acute distress Detailed Neck Exam Neck exam general surgery: Present supple and full ROM Respiratory Exam Respiratory Exam: Normal Cardiovascular Exam Cardiovascular Exam: Normal Abdominal Exam Comments: Soft, nontender Fundal Exam Fundus: Below Umbilicus and Firm Extremities Exam Extremity Exam: Normal; negative Calf Tenderness, Edema and Redness Skin Exam Skin Exam: Normal Detailed Neurological Exam Neurological: Present alert and oriented X3 DetailedPsychiatric Exam Psych Exam: Normal Affect, Normal Thougth Process, Cooperative, Good Insight and Good Judgement Results Hemoglobin/Hematocrit: Hgb 13.0 g/dL (11.2-15.7) 01/19/21 15:40 Hct 37.6 % (36.0-46.0) 01/19/21 15:40 Abnormal Lab Findings: Abnormal Labs 01/18/21 01/18/21 01/19/21 16:58 18:24 15:40 WBC 19.44 H D Absolute Neutrophils 7.99 H Ur Specific [place] >= 1.030 H Urine Protein 30 H Urine Ketones 15 H Urine Blood Small H Urine Urobilinogen 1.0 H Urine WBC 20-50 H
[2021-01-20 17:00] VITALS: BP 113/76; PULSE 85; RESP 20; TEMP 37.2
[2021-01-20 22:38] VITALS: BP 113/77; PULSE 76; RESP 17; TEMP 36.7
--- NOTE | 2021-01-21 15:00 | W.PM.OBDISCH ---
Date of service: 01/21/21 Time of Service: 15:00 DS: Diagnosis Discharge Diagnosis (1) (normal spontaneous vaginal delivery): Status: Acute Asessment and Plan: PPD#2 s/p NVD. Doing well. Out of bed. Moderate lochia. Cramping controlled on PO meds. Breast feeding going ok for a premie. Plan: routine post- care. (2) delivery: Status: Acute Discharge Plan Disposition Patient Disposition: HOME Condition: Good Discharge Details Reason For Visit: Labor Admit Date/Time: 01/19/21 00:00 Admit Provider: Whitney May Attending Provider: Whitney May Primary Care Provider: Tatiana Rao Home Meds and New Rx's Prescriptions: New ibuprofen 600 mg Tablet 600 mg PO Q6H PRN PRNQty: 60 RF: 0 Continued acetaminophen [Tylenol Extra Strength] 500 mg tablet 500 mg PO Q6H PRNRF: 0 PrePlus 27 mg iron- 1 mg tablet 1 tab PO DAILY Qty: 90 RF: 8 Discharge Instructions Stand Alone Forms: BC Instructions, BC Post Vaginal Deliver Activity:: Activity as Tolerated Equipment/Supplies:: No Equipment Needed Diet:: As Tolerated Discharge Orders Discharge Orders: Discharge Order (Routine); Ordered 01/21/21 Ordered By: Areli Ashby OB:DS Summary Summary Vaginal Delivery Method: Spontaneaous Episiotomy Description: None Laceration Description: None Laceration Extension: N/A Contraception Discussed Contraception Discussed: Yes Contraceptive Plan: Levonorgestrel Implant, Gender-Baby A: Female weight: 8 lb 15.212 oz Status at Discharge Functional status at discharge: independent ambulation Overall status at discharge: patient is back to baseline Mental Status: mental status grossly normal Speech and Movement: speech and movement normal Mood: congruent mood Affect: normal affect Exam Physical Exam Vital signs: Temp Pulse Resp BP Pulse Ox 98.1 F 76 17 113/77 96 01/20/21 22:38 01/20/21 22:38 01/20/21 22:38 01/20/21 22:38 01/18/21 23:45 PFSH Active Problem List (Updated 01/20/21 @ 10:02 by hWitney May DO) delivery (Acute) Cervical cerclage suture present in third trimester (Acute) labor (Acute) Encounter for care in third trimester of first (Acute) Impaired glucose tolerance (Acute) Elevated glucose tolerance test (Acute) Encounter for care in second trimester of first (Acute) HRP (high risk ) (Acute) Early stage of (Acute) (normal spontaneous vaginal delivery) (Acute) Uterine fibroid in antepartum period (Acute) Tricia's thyroiditis (Acute) Cervical insufficiency during in second trimester, antepartum (Acute) Cervical insufficiency during in first trimester, antepartum (Acute) History of D&C (Acute) Spontaneous in second trimester (Acute) Enlarged thyroid (Chronic) Family History (Updated 01/18/21 @ 21:52 by Whit Robledo RN) Mother Depression Other Asthma Social History Smoking/Tobacco Use Status: Never Smoking risk assessment performed?: Yes Alcohol Intake: former Drug use: Never Substance use type: does not use Household members: significant other Number of Children: 0 current occupation: [employer] Sexually active: Yes Do you feel safe at home: Yes Do you feel safe in your relationship?: Yes History History 2 Para 1 Hx # Term Pregnancies 1 Multiple births Hx # Pregnancies Ectopic pregnancies AB induced Hx Number of Living Children AB spontaneous 1 Past Pregnancies Del. Date GA/Weeks # Outcome Route Wgt Sex Labor Lgth Anesthesia Location Prov Complic 04/14/18 19 No Unsuccessful vaginal 05/23/19 No Successful vaginal 8 lb 2 oz Female [place] Delivery Date: 04/14/18 SAB at 19w1d retained placenta to OR By Cassie Butts Delivery Date: 05/23/19 No notes to display DS: Data Vitals/I&O Vitals and I&O: Vital Signs Temperature 98.1 F 01/20/21 22:38 Temperature Source Oral 01/18/21 23:04 Pulse 76 01/20/21 22:38 Pulse Rhythm Regular 01/20/21 10:00 Respiratory Rate 17 01/20/21 22:38 Respiratory Depth Normal 01/19/21 19:33 Blood Pressure 113/77 01/20/21 22:38 Blood Pressure Mean 89 01/20/21 22:38 Pulse Oximetry 96 01/18/21 23:45 Oxygen Delivery Method Room Air 01/18/21 21:39 Oxygen Flow Rate 0 01/18/21 21:39 Pain Level 3 01/20/21 22:38
[2021-01-21] MEDS: Acetaminophen 325 MG TAB 650 MG PO (17:52)
[2021-01-21] MEDS: Ibuprofen 600 MG TAB PO (17:52)
== END 2021-01-21 18:00 | disposition home or self-care (01) | DRG 805 ==
LOC: OBS 01-21 09:30 → LBO 01-21 11:30 → OBS 01-21 11:37
PROVIDERS: Admitting Provider Obstetrics & Gynecology; PCP Nurse Practitioner Adult Health; Visit Provider Obstetrics & Gynecology
DX: O60.14X0 Preterm labor third trimester with preterm delivery third trimester, not applicable or unspecified (principal); O45.8X3 Other premature separation of placenta, third trimester; Z37.0 Single live birth; O34.33 Maternal care for cervical incompetence, third trimester; Z3A.34 34 weeks gestation of pregnancy; O76 Abnormality in fetal heart rate and rhythm complicating labor and delivery; O99.814 Abnormal glucose complicating childbirth
CPT/HCPCS: 36415; 85027; 86850; 86900; 86901; 87635; 59025; 81003; 81015; 85025; 87081; J0456; J0702; J2540